=== PATIENT | male | born 1940 | race Caucasian/White ===

== ENCOUNTER 2017-05-22 09:13 | Outpatient (CLI) | payer MEDICARE, BC ==
[2017-05-22 10:23] LABS: Anion Gap 10 mmol/L (10-20); BUN (Urea Nitrogen) 27 mg/dL (8.4-25.7); Calc. Creatinine Clearance 0 mL/min (70-130); Calcium 9.6 mg/dL (7.8-10.44); Carbon Dioxide 28 mmol/L (23-31); Chloride 100 mmol/L (98-107); Estimated GFR-MDRD 35
--- NOTE | 2017-05-22 12:03 | ULT ---
ULTRASOUND RENAL BILATERAL: History: Calcifications. Comparison: 05-23-15 FINDINGS: Right kidney measures 10.1 x 5.3 x 5 cm with an inferior pole calculus measuring approximately 4-5 m m. No hydronephrosis. Left kidney measures 9.9 x 5.1 x 5.8 cm without mass, hydronephrosis or abnormal calcifications. Uri nary bladder is unremarkable. IMPRESSION: 1. 4-5 mm calculus inferior pole right kidney. No evidence of obstructive uropathy. 2. Small likely cyst inferior pole right kidney measuring 1.4 x 1.6 cm. Follow up in 6 months recomm ended. POS: [facility]
--- NOTE | 2017-05-22 12:26 | RAD ---
ABDOMEN 1 VIEW: HISTORY: Calculus of kidney, urinary retention, frequent micturition. COMPARISON: Abdomen 1 view from 2015. FINDINGS: There is a calculus inferior pole right kidney measuring 4-5 mm. No abnormal calculus is seen proje cting over the left renal collecting system. There is a punctate calcification projecting over the left upper abdomen similar to the comparison e xamination. 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 IMPRESSION: 1. A 4-5 mm calculus inferior pole right kidney. 2. Punctate calculus projecting over the left renal shadow, similar to the comparison examination, may represent a calculus best seen on ultrasound. POS: [place]
[2017-05-22 13:03] LABS: Bilirubin Negative (Negative); Blood, Urine Trace (Negative); Glucose, Urine (Dipstick) 100 mg/dL (Negative); Ketone, Urine Negative (Negative); Nitrite Negative (Negative); Protein, Urine (Dipstick) Negative (Neg-Trace); Urobilinogen 0.2 mg/dL (0.2-1.0)
[2017-05-22 13:08] LABS: Bacteria/HPF None Seen HPF (None Seen); Hyaline Casts/LPF 0-3 HYALINE CAST LPF (0-3 Hyaline); RBC/HPF 0-3 HPF (0-3); Squamous Epithelial None Seen HPF (0-3); WBC/HPF None Seen HPF (0-3)
== END 2017-05-22 09:14 | disposition home or self-care (01) ==
LOC: ULT 09:13
PROVIDERS: ATTEND Urology
DX: N20.0 Calculus of kidney (principal); R33.9 Retention of urine, unspecified; R35.0 Frequency of micturition
CPT/HCPCS: 36415; 74000; 76770; 80048; 81001; 87086

== ENCOUNTER 2017-06-28 12:21 | Inpatient (IN) | payer MEDICARE, BC ==
[2017-06-28 13:01] LABS: PTT 27.2 SEC (22.9-36.1); Prothrombin Time 14.1 SEC (12.0-14.7)
[2017-06-28 13:12] LABS: #Eosinphils 0.4 thou/uL (0.0-0.7); #Lymphocytes 1.2 thou/uL (1.20-3.40); #Neutrophils 6.8 thou/uL (1.40-6.50); %Basophils 0.5 % (0.0-1.0); %Eosinophils 4.5 % (0.0-10.0); %Lymphocytes 12.5 % (21.0-51.0); %Monocytes 10.4 % (0.0-10.0); Mean Platelet Volume 8.9 fL (7.4-10.4); Red Blood Cell (RBC) Count 4.25 mill/uL (4.70-6.10); White Blood Cell (WBC) Count 9.5 thou/uL (4.8-10.8)
[2017-06-28 13:20] LABS: ALT (SGPT) 12 U/L (8-55); AST (SGOT) 24 U/L (5-34); Alkaline Phosphatase 63 U/L (40-150); Anion Gap 12 mmol/L (10-20); BUN (Urea Nitrogen) 30 mg/dL (8.4-25.7); Bilirubin, Total 0.6 mg/dL (0.2-1.2); CK (CPK) 269 U/L (30-200); Calc. Creatinine Clearance 0 mL/min (70-130); Calcium 9.3 mg/dL (7.8-10.44); Carbon Dioxide 26 mmol/L (23-31); Chloride 98 mmol/L (98-107); Estimated GFR-MDRD 35; Globulin 3.6 g/dL (2.4-3.5); Lipase 20 U/L (8-78); Protein, Total 7.5 g/dL (5.8-8.1)
[2017-06-28 13:24] LABS: Troponin I 0.016 ng/mL (< 0.028)
--- NOTE | 2017-06-28 15:22 | RAD ---
CHEST 1 VIEW: Date: 06/28/17 HISTORY: Syncope. COMPARISON: Chest 1 view from 2013. FINDINGS: There are chronic pleural and parenchymal changes of the left lung base which are [facility] No acute osseous abnormality. Cardiac silhouette and mediastinal contour similar. No focal air space consolidation or pneumothorax. IMPRESSION: No acute intrathoracic abnormality. POS: [facility]
--- NOTE | 2017-06-28 15:34 | CT ---
HEAD CT WITHOUT CONTRAST 06/28/17 COMPARISON: None. HISTORY: Syncope. TECHNIQUE: Serial axial CT imaging is obtained at 5 mm intervals from vertex through skull base without contrast . FINDINGS: The imaged paranasal sinuses/mastoid air cells are well aerated. There is atherosclerotic calcification of the distal vertebral arteries and the basilar artery. Parti ally imaged maxillary sinus mucosal thickening is noted. There is multifocal periventricular deep and subcortical white matter hypodensity suggesting small ve ssel disease. There is encephalomalacia within the superior posterior right parietal region suggestin g prior infarction. Areas of hypodensity within bilateral cerebellar hemispheres are noted, right gre ater than left, suggesting age indeterminate ischemia. No intracranial hemorrhage, midline shift or mass effect. IMPRESSION: Small vessel disease with evidence of age indeterminate bilateral cerebellar hemisphere infarctions a nd supratentorial infarctions. If there is clinical concern for acute infarction, followup brain MRI suggested. POS: [place]
[2017-06-28 16:10] LABS: Troponin I 0.012 ng/mL (< 0.028)
[2017-06-28] MEDS ORDERED: Ondansetron ODT 4 MG TAB SL PRN (18:10)
[2017-06-28] MEDS ORDERED: Ondansetron HCl/PF 4 MG/2 ML Vial IVP PRN (18:10)
[2017-06-28 18:11] VITALS: BMI 23.1
[2017-06-28] MEDS: Sodium Chloride 0.9% 1,000 ML IV SCH (18:59)
[2017-06-28 19:15] LABS: Troponin I 0.016 ng/mL (< 0.028)
[2017-06-28] MEDS ORDERED: hydrALAZINE 20 MG/ML VIAL SLOW IVP PRN (20:37)
--- NOTE | 2017-06-28 21:44 | HP ---
DATE OF ADMISSION: 06/28/2017 This is admission for observation to telemetry floor. CHIEF COMPLAINT: Syncopal episode. HISTORY OF PRESENT ILLNESS: The patient is a 77-year-old male who did some work in his gar den this morning and he came to the house because he felt a little bit dizzy. His vision was a littl e bit blurred, and he sat down and while sitting there his noticed that he did not respond to he r when he was sitting and he kind of slumped over and he was not able to communicate with her at all, which lasted according to her for a few minutes. The EMS was called and he was taken to the emergen cy room. According to his , the whole episode lasted approximately 10 minutes. He regained cons ciousness relatively quickly and he was evaluated in the emergency room. Decision was made about hos pitalization for observation. Interrogation of his pacer and monitoring his heart for the next 23-ho urs. PAST MEDICAL HISTORY: Positive for: 1. Diabetes mellitus type 2. 2. Pacemaker placement. 3. Benign prostatic hypertrophy. 4. Nephrolithiasis. 5. History of urinary tract infection. 6. Coronary artery disease. 7. History of myocardial infarction and two stent placement. 8. Hypertension. PAST SURGICAL HISTORY: CABG. MEDICATIONS: Finasteride 5 mg once a day, metoprolol 50 mg 2 a day, tamsulosin 0.4 mg unknown freque ncy, atorvastatin 10 mg unknown frequency, Lasix 40 mg unknown frequency, Januvia 100 mg unknown freq uency, aspirin 325 mg daily, vitamin D 1000 units daily, hydralazine 50 mg twice a day, latanoprost 0 .005% ophthalmic solution 2.5 mL unknown frequency and MiraLax p.r.n. for constipation. ALLERGIES: PENICILLIN. FAMILY HISTORY: Father was 93 when he passed of natural causes. Mother was 73 and she had cancer, u nknown origin. SOCIAL HISTORY: He denies any cigarette smoking, alcohol intake or use any illicit drugs. He lives with his . REVIEW OF SYSTEMS: Constitutional: Negative for fever and chills. Eyes: Negative for eye pain and eye discharge. Positive for some blurred vision during this episode. Cardiovascular: Negative for chest pain and palpitations. Respiratory: Negative for shortness of breath and cough. ENT: Negat michelle for epistaxis and nasal congestion. Gastrointestinal: Negative for nausea. Positive for consti pation. Genitourinary: Negative for hematuria and dysuria. Positive for slow stream of the urine w hile urinating. Neurologic: Positive for loss of consciousness. Negative for any focal deficits. Skin: Negative for rashes or erythema. Psychiatric: Negative for suicidal or homicidal ideations. PHYSICAL EXAMINATION: VITAL SIGNS: Blood pressure is 146/72, pulse is 76. He is afebrile, respiratory rate is 16. HEENT: Atraumatic, normocephalic. Eyes: PERRLA. Conjunctivae pinkish. Oral mucosa is somewhat dr y. NECK: Supple, no lymphadenopathy. Thyroid is not palpable. No JVD. LUNGS: Clear. HEART: S1, S2 normal. No S3, no S4, no murmur. ABDOMEN: Soft, nontender, bowel sounds are present, no organomegaly. EXTREMITIES: No clubbing, cyanosis, or edema. He has a pretty good pulses on both tibialis posterio r and dorsalis pedis arteries, similar bilaterally. NEUROLOGIC: He is alert and oriented x4. There is no any sensorimotor deficits are present. Crania l nerves are intact. LABORATORY AND X-RAY FINDINGS: Showed a white count of 9.5, hemoglobin 13.4, hematocrit 41.0, platel et count is 114. PT 14.1, INR 1.1, PTT 27.2. Sodium of 132, BUN 30, creatinine 1.85, estimated GFR 35, glucose 137, creatinine kinase 269, total globulin 3.8. Lipase 20 and the rest of chemistry with in normal limits. Chest x-ray was done and was personally reviewed by me. There are no any acute ab normalities. No infiltrates. Brain CT was done and it did not show any acute abnormalities. IMPRESSION: 1. Syncope, most likely related to volume depletion. The patient is on Lasix and beta blockers and he noticed that each time he gets up, he has to take time and be careful because he feels unsteady an d kind of dizzy. 2. Diabetes mellitus type 2. 3. History of coronary artery disease. 4. Pacemaker. 5. History of nephrolithiasis. 6. Hypertension. 7. History of urinary tract infection. PLAN: Admission for observation. Condition is fair. Activity is bathroom privileges. IV normal sa line at 75 mL per hour. He received almost full liter of fluids in the emergency room, we will inter rogate his pacer. We will have additional 2 sets of cardiac enzymes to be checked. We will his hold home medications except for Lasix and we will do echocardiogram and he is not going to have Lovenox since he has some thrombocytopenia, which is mild, but will have him on sequential compression device s for deep venous thrombosis prophylaxis.
[2017-06-29 05:57] LABS: #Eosinphils 0.3 thou/uL (0.0-0.7); #Lymphocytes 1.4 thou/uL (1.20-3.40); #Neutrophils 5.9 thou/uL (1.40-6.50); %Basophils 0.4 % (0.0-1.0); %Eosinophils 3.7 % (0.0-10.0); %Lymphocytes 16.3 % (21.0-51.0); Hematocrit 39.9 % (42.0-52.0); Mean Platelet Volume 9.5 fL (7.4-10.4); Red Blood Cell (RBC) Count 4.15 mill/uL (4.70-6.10); White Blood Cell (WBC) Count 8.7 thou/uL (4.8-10.8)
[2017-06-29 06:23] LABS: Anion Gap 9 mmol/L (10-20); BUN (Urea Nitrogen) 22 mg/dL (8.4-25.7); Calc. Creatinine Clearance 45 mL/min (70-130); Calcium 8.9 mg/dL (7.8-10.44); Carbon Dioxide 24 mmol/L (23-31); Chloride 110 mmol/L (98-107); Estimated GFR-MDRD 45
[2017-06-29] MEDS: Sodium Chloride 0.9% 1,000 ML IV SCH (06:24)
[2017-06-29] MEDS ORDERED: Polyethylene Glycol 3350 17 GM Packet PO PRN (07:23)
[2017-06-29] MEDS ORDERED: hydrALAZINE 25 MG TAB PO SCH (09:00)
[2017-06-29] MEDS ORDERED: Dutasteride 0.5 MG CAP PO SCH (09:00)
[2017-06-29] MEDS ORDERED: Alogliptin Benzoate 25 MG TABLET PO SCH (09:00)
[2017-06-29] MEDS ORDERED: Tamsulosin HCl 0.4 MG CAP PO SCH (09:00)
[2017-06-29 11:30] VITALS: TEMP 98.1
[2017-06-29] MEDS ORDERED: Amlodipine 5 MG TAB PO SCH ×2 (12:45)
[2017-06-29 14:03] VITALS: BP 123/62
[2017-06-29] MEDS ORDERED: Aspirin 325 MG TAB PO SCH (21:00)
[2017-06-29] MEDS ORDERED: Atorvastatin Calcium 10 MG TAB PO SCH (21:00)
[2017-06-29] MEDS ORDERED: Latanoprost 0.005% Ophth Soln 2.5 ml Bottle EA EYE SCH (21:00)
--- NOTE | 2017-06-29 22:35 | DIS ---
DATE OF ADMISSION: 06/28/2017 DATE OF DISCHARGE: 06/29/2017 DIAGNOSES AT THE TIME OF DISCHARGE: 1. Syncope. 2. Diabetes mellitus type 2. 3. Uncontrolled hypertension. 4. History of coronary artery disease. 5. Pacemaker. 6. History of nephrolithiasis. 7. Hypertension. 8. History of urinary tract infection. 9. Benign prostatic hypertrophy. HOSPITAL COURSE: The patient is a 77-year-old male who was admitted to the hospital [facility] of syncopal episode. Apparently, he did some work in his garden in the morning and came home [facility] he felt a little bit dizzy and has some blurred vision. He sat down and while he was sitting, his noticed that he was not responsive to her like he normally is. He is kind of slumped over and he was not able to communicate with her. EMS was called and the patient was taken to the emergency r oom. According to his , this responsiveness lasted approximately 10 minutes. After he was evalu ated in the emergency room, the decision was made about hospitalization for observation. At the time of the ER visit, his white count was 9.5, hemoglobin 13.4, hematocrit 41.0, platelet count was 114. INR was 1.1. Sodium of 132, BUN 30, creatinine 1.85, glucose was 137, creatinine kinase 269, total globulin 3.8 and lipase was 20. The rest of chemistry was within normal limits. Chest x-ray was don e and did not show any acute abnormalities. The brain CT was done and it did not show any acute abno rmalities either. EKG showed a paced rhythm 61 beats per minute with no ectopics. There was complet e right bundle branch block. [place] was normal. The patient had orthostatic done and they were negati ve. He received IV fluids in the emergency room and after he was admitted to the hospital, he was ob served on telemetry floor. There were not any additional acute syncopal episodes. Echocardiogram wa s done and showed 45%-50% ejection fraction of the left ventricle, grade 1 diastolic dysfunction, inf erolateral septal hypokinesia, and mitral annular calcification was present. The patient also had an additional set of cardiac enzymes and troponin came back at 0.016. With IV fluids, his creatinine w ent down to 1.49 and his glycemia was in the range of 125-169. Because of his mild microcytic anemia , vitamin B12 was checked along with folic acid levels and vitamin B12 was 329 and folate was 10.90. The patient was advised to get a bottle of multivitamin with vitamin B12 and folic acid and take on a daily basis. He is doing well. He is able to get up and walk in the hallway without any dizziness . PHYSICAL EXAMINATION: VITAL SIGNS: Blood pressure was 185/85 around 11:00 today and he was given 5 mg of amlodipine and no w is down to 123/62. The patient is seen and examined before his discharge. LUNGS: Clear. HEART: S1, S2 normal. No S3, no S4. ABDOMEN: Soft, nontender, bowel sounds are present, no organomegaly. EXTREMITIES: No clubbing, cyanosis, or edema. The patient is discharged home with a recommendation to stay on low-salt, heart-healthy diet. ACTIVITIES: As tolerated. MEDICATIONS AT THE TIME OF DISCHARGE: He has got a prescription for amlodipine 5 mg tablets, he will take half a tablet which is 2.5 mg daily. Also, he will continue his other home medications which a re aspirin 325 mg once a day, atorvastatin 10 mg at bedtime, vitamin D3 1000 units every other day, A vodart 0.5 mg tablets once a day, hydralazine 50 mg tablets twice a day, latanoprost ophthalmic solut ion 1 drop to each eye at bedtime, metoprolol succinate 50 mg twice a day, polyethylene glycol 17 gra ms once a day, sitagliptin phosphate which is Januvia 100 mg daily, alogliptin 25 mg daily, Flomax 0. 4 mg once a day, and furosemide 20 mg daily. DISPOSITION: Home. He will follow up with his primary care physician in one week and he will keep h is appointment with Dr. Costa, which is coming up soon. This patient was seen and examined before he was discharged and the discharge time is less than 30 minutes.
[2017-06-30] MEDS ORDERED: Amlodipine 5 MG TAB PO SCH (09:00)
== END 2017-06-29 14:54 | disposition home or self-care (01) | DRG 312 ==
LOC: ERS 12:21 → 2NO 17:22
PROVIDERS: ADMIT Internal Medicine; ATTEND Internal Medicine
DX: R55 Syncope and collapse (principal); D69.6 Thrombocytopenia, unspecified; E11.9 Type 2 diabetes mellitus without complications; I10 Essential (primary) hypertension; I25.2 Old myocardial infarction; D50.9 Iron deficiency anemia, unspecified; I45.10 Unspecified right bundle-branch block; Z95.0 Presence of cardiac pacemaker; Z95.1 Presence of aortocoronary bypass graft; Z88.0 Allergy status to penicillin; N40.0 Benign prostatic hyperplasia without lower urinary tract symptoms; Z87.891 Personal history of nicotine dependence
CPT/HCPCS: 36415; 36416; 70450; 71010; 80048; 80053; 82550; 82553; 82607; 82746; 83690; 84484; 85025; 85610; 85730; 93005; 93306; 96360; J0360

== ENCOUNTER 2018-01-20 11:45 | Observation (INO) | payer MEDICARE, BC ==
[2018-01-20 12:17] LABS: #Basophils 0.1 thou/uL (0.0-0.2); #Eosinphils 0.4 thou/uL (0.0-0.7); #Lymphocytes 1.4 thou/uL (1.20-3.40); #Neutrophils 6.5 thou/uL (1.40-6.50); %Basophils 0.6 % (0.0-1.0); %Eosinophils 3.9 % (0.0-10.0); %Lymphocytes 15.4 % (21.0-51.0); %Monocytes 10.6 % (0.0-10.0); %Neutrophils 69.5 % (42.0-75.0); Hemoglobin 14.2 g/dL (14.0-18.0); Mean Corpuscular HGB CONC 33.4 g/dL (32.0-36.0); Mean Corpuscular Hemoglobin 31.7 pg (27.0-31.0); Mean Corpuscular Volume 94.8 fl (80.0-94.0); Mean Platelet Volume 9.4 fL (7.4-10.4); Platelet Count 108 thou/uL (130-400); RBC Distribution Width 12.3 % (11.5-14.5); Red Blood Cell (RBC) Count 4.47 mill/uL (4.70-6.10); White Blood Cell (WBC) Count 9.3 thou/uL (4.8-10.8)
[2018-01-20 12:28] LABS: ALT (SGPT) 12 U/L (8-55); AST (SGOT) 21 U/L (5-34); Albumin 4.2 g/dL (3.4-4.8); Alkaline Phosphatase 59 U/L (40-150); Anion Gap 14 mmol/L (10-20); BUN (Urea Nitrogen) 35 mg/dL (8.4-25.7); Bilirubin, Total 0.6 mg/dL (0.2-1.2); CK (CPK) 155 U/L (30-200); Calc. Creatinine Clearance 0 mL/min (70-130); Calcium 9.5 mg/dL (7.8-10.44); Carbon Dioxide 22 mmol/L (23-31); Chloride 102 mmol/L (98-107); Estimated GFR-MDRD 38; Globulin 3.7 g/dL (2.4-3.5); Glucose 160 mg/dL (83-110); Potassium 4.2 mmol/L (3.5-5.1); Protein, Total 7.9 g/dL (5.8-8.1); Sodium 134 mmol/L (136-145)
[2018-01-20 13:13] LABS: Bilirubin Negative (Negative); Blood, Urine Negative (Negative); Clarity CLEAR (Clear); Glucose, Urine (Dipstick) 100 mg/dL (Negative); Leukocyte Negative (Negative); Nitrite Negative (Negative); Protein, Urine (Dipstick) Negative (Neg-Trace); Urobilinogen 0.2 mg/dL (0.2-1.0); pH, Urine 7.5 (5.0-9.0)
--- NOTE | 2018-01-20 13:19 | CT ---
CT OF THE BRAIN WITHOUT CONTRAST: HISTORY: Syncope. COMPARISON: Prior exam dated 06/28/17. FINDINGS: There is stable severe chronic small-vessel white matter ischemic change. There are stable chronic-a ppearing bilateral cerebellar hemisphere infarctions and right parietal lobe infarction. There are s mall lacunar infarctions involving the basal ganglia bilaterally. The septum pellucidum and third ve ntricle are midline. No definite acute infarct, hemorrhage, or hydrocephalus is present. The skull and extracranial soft tissues appear within normal limits. There is complete opacification of the ma xillary sinuses which is stable. IMPRESSION: 1. Stable severe chronic small-vessel white matter ischemic change. No acute intracranial abnormali ty demonstrated. 2. Stable changes or chronic maxillary sinusitis. POS: [facility]
[2018-01-20 13:42] LABS: CKMB 3.9 ng/mL (0-6.6); Troponin I 0.012 ng/mL (< 0.028)
[2018-01-20 15:20] VITALS: BMI 24.1
[2018-01-20] MEDS ORDERED: Bisacodyl 5 MG TAB PO PRN (15:21)
[2018-01-20] MEDS ORDERED: Dextrose 50% Abboject 50 ML SYRINGE SLOW IVP PRN (15:21)
[2018-01-20] MEDS ORDERED: Acetaminophen 325 MG TAB PO PRN (15:21)
[2018-01-20] MEDS ORDERED: Dextrose 5% in Water 1,000 ML IV PRN (15:21)
--- NOTE | 2018-01-20 15:52 | HP ---
PRIMARY CARE PROVIDER: Chitra Mancia MD CHIEF COMPLAINT: Syncope. HISTORY OF PRESENT ILLNESS: Mr. Mccormack is a pleasant 77-year-old gentleman, who was seen at [facility] on 01/20/2018. He was hospitalized at this facility in 06/2017 for syncop e. His blood pressure medications were adjusted at the time of discharge. He reports that he was doing well. He came to [place] today because he had an appointment with his eye doctor. He was at lunch with his while eating at the [employer], he just started slumping for gomez. He was unresponsive to his . The patient reports that he did not pass out, but he was jasbir re of what was happening around him, but he felt too weak to respond. He denies any dizziness. He d enies any chest pain or shortness of breath while on the time of this episode. He denies any nausea or vomiting. His estimates that the entire episode lasted about 20 minutes. EMS was called. T he patient was brought to the emergency room and he reports that he is feeling better now. REVIEW OF SYSTEM: All other systems reviewed and found to be negative. PAST MEDICAL HISTORY: Diabetes mellitus type 2, pacemaker placement, benign prostate hypertrophy, ne phrolithiasis, urinary tract infection, coronary artery disease, myocardial infarction status post PC I with 2 stents, and hypertension. PAST SURGICAL HISTORY: Coronary artery bypass graft. ALLERGIES: PENICILLIN. CURRENT MEDICATIONS: Furosemide 20 mg daily, hydralazine 50 mg 2 times a day, finasteride 5 mg daily , metoprolol 50 mg 2 times a day, amlodipine 5 mg daily, Januvia 100 mg daily, atorvastatin 10 mg yudi ly, aspirin 325 mg daily, latanoprost eye drops 1 drop to each eye daily, multivitamins 1 tablet amy y, and MiraLax as needed. SOCIAL HISTORY: The patient denies tobacco use, alcohol use or recreational drug use. FAMILY HISTORY: Significant for "enlarged heart" in his mother. PHYSICAL EXAMINATION: GENERAL: Mr. Mccormack is awake and alert, not in acute distress. VITAL SIGNS: Blood pressure is 143/70, pulse is 60, he is breathing at rate of 19, and saturating 96 % on room air. He is afebrile. There is no orthostatic hypotension. EYES: No scleral icterus. No conjunctival pallor. ENT: Moist mucosal membranes, no oropharyngeal erythema or exudates. NECK: Supple, nontender, normal range of movement. Trachea is midline. RESPIRATORY: Accessory muscles of breathing are not active. Chest wall movements are symmetric bila terally. LUNGS: Clear to auscultation, without wheeze, rhonchi, or crepitations. CARDIOVASCULAR: S1 and S2 are heard, regular. Peripheral pulses palpable. No carotid bruit and no pericardial rub. ABDOMEN: Soft, nontender, bowel sounds are heard, no hepatomegaly, no splenomegaly. NEUROLOGIC: Cranial nerves II-XII intact. Deep tendon reflexes are 2+. MUSCULOSKELETAL: Power is 5/5 in all 4 extremities. SKIN: No rashes or subcutaneous nodules. LYMPHATIC: No cervical lymphadenopathy. PSYCHIATRIC: Normal mood, normal affect, patient is oriented to person and place, not to time. LABORATORY DATA: Mr. Mccormack labs and investigations were reviewed. I reviewed his electrocardiogra m, which shows AV electronic paced rhythm, no ST changes to suggest an acute coronary syndrome. I al so reviewed his noncontrast CT scan of brain, which does not show any acute stroke or bleed. He has normal white count, normal hemoglobin, decreased platelet count of 108,000, last known platelet count 125,000 on 12/03/2017, decreased sodium of 134, normal potassium, elevated blood urea nitrogen of 35 , last known blood urea nitrogen 25 on 12/03/2017, elevated creatinine 1.75, last known creatinine 1. 71 on 12/03/2017, normal liver function tests and urinalysis that is only positive for glucose. ASSESSMENT AND PLAN: Mr. Mccormack is a pleasant 77-year-old gentleman, who was seen at [facility] on 01/20/2018. His problem list includes: 1. Syncope: Etiology unclear, most likely related to dehydration. Patient will be admitted to the hospital and provided gentle hydration. His pacemaker has been interrogated in the Emergency Room [place] part[place] and the emergency room physician reports that it was normal. We will also request Cardiolog y Service input for opinion and help with further management. His primary fiberglass tube molder is Dr. Alanis de luna. 2. Thrombocytopenia: Chronic, we will follow counts. 3. Chronic kidney disease stage 3, stable, the patient appears to have superimposed dehydration at t his time. 4. Coronary artery disease: Appears to be stable. First troponin I is negative. We will recheck h is troponin level. 5. Diabetes mellitus type 2: Start Accu-Cheks, insulin sliding scale. 6. Hypertension: Continue to check orthostatic vitals, in case the patient has orthostatic hypotens ion. Patient reportedly had a systolic blood pressure in the 90s when he was seen by EMS personnel. If he develops hypotension, his blood pressure medication doses may need to be decreased. Many thanks for allowing me to participate in your patient's care. Please feel free to contact me wi th any questions or concerns. CODE STATUS: His code status was discussed. He is FULL CODE. His is the surrogate decision marina ibanez. LEVEL OF RISK: High. LEVEL OF COMPLEXITY: High.
[2018-01-20] MEDS: Sodium Chloride 0.9% 1,000 ML IV SCH (16:14)
[2018-01-20 16:41] LABS: CKMB 4.1 ng/mL (0-6.6); Troponin I Less than 0.010 ng/mL (< 0.028)
[2018-01-20] MEDS: HumaLOG 300 UNITS/3 ML VIAL SC PRN (17:04)
[2018-01-21 05:04] LABS: ALT (SGPT) 9 U/L (8-55); AST (SGOT) 19 U/L (5-34); Albumin 3.7 g/dL (3.4-4.8); Alkaline Phosphatase 52 U/L (40-150); Anion Gap 11 mmol/L (10-20); BUN (Urea Nitrogen) 26 mg/dL (8.4-25.7); Bilirubin, Total 0.6 mg/dL (0.2-1.2); Calc. Creatinine Clearance 46 mL/min (70-130); Calcium 8.9 mg/dL (7.8-10.44); Carbon Dioxide 25 mmol/L (23-31); Chloride 107 mmol/L (98-107); Estimated GFR-MDRD 47; Globulin 3.2 g/dL (2.4-3.5); Glucose 116 mg/dL (83-110); Potassium 3.7 mmol/L (3.5-5.1); Protein, Total 6.9 g/dL (5.8-8.1); Sodium 139 mmol/L (136-145)
[2018-01-21 05:13] LABS: #Basophils 0.1 thou/uL (0.0-0.2); #Eosinphils 0.3 thou/uL (0.0-0.7); #Lymphocytes 1.4 thou/uL (1.20-3.40); #Monocytes 1.1 thou/uL (0.11-0.59); #Neutrophils 7.1 thou/uL (1.40-6.50); %Basophils 0.5 % (0.0-1.0); %Eosinophils 3.5 % (0.0-10.0); %Lymphocytes 13.9 % (21.0-51.0); %Neutrophils 71.1 % (42.0-75.0); Hemoglobin 13.2 g/dL (14.0-18.0); Mean Corpuscular HGB CONC 33.2 g/dL (32.0-36.0); Mean Corpuscular Hemoglobin 31.1 pg (27.0-31.0); Mean Corpuscular Volume 93.8 fl (80.0-94.0); Mean Platelet Volume 9.3 fL (7.4-10.4); Platelet Count 113 thou/uL (130-400); RBC Distribution Width 12.2 % (11.5-14.5); Red Blood Cell (RBC) Count 4.24 mill/uL (4.70-6.10)
[2018-01-21] MEDS: Sodium Chloride 0.9% 1,000 ML IV SCH (05:55)
[2018-01-21] MEDS ORDERED: Enoxaparin Sodium 40 MG/0.4 ML SYRINGE SC SCH (09:00)
[2018-01-21] MEDS ORDERED: ADENOSINE 60 MG/20 ML VIAL ONE (12:09)
--- NOTE | 2018-01-21 14:05 | NM ---
MYOCARDIAL PERFUSION STUDY: DATE: 01/21/18. HISTORY: Syncope. History of myocardial infarction, coronary artery disease, history of CABG and stent placem ent. RADIOPHARMACEUTICALS: 30 mCi Technetium 99m sestamibi, IV at stress, and 9 mCi Technetium 99m sestamibi, IV at rest. MEDICATIONS: 14.7 mL (44 mg) adenosine, IV. FINDINGS: There is no reversible defect seen between the resting and stress acquisitions. No fixed defect is s een. Gated images show hypokinesis involving the septal wall and to a lesser extent inferior left ve ntricular wall. Normal wall thickening is present. The calculated left ventricular ejection fractio n is 65%. IMPRESSION: 1. Normal myocardial perfusion study without evidence of a reversible defect seen to suggest ischemi a. 2. Hypokinesis involving the septum and inferior left ventricular wall. 3. Normal left ventricular ejection fraction of 65%. POS: [place]
--- NOTE | 2018-01-21 15:38 | PDOC.PN ---
- Subjective Encounter Start Date: 01/21/18 Encounter Start Time: 08:40 Pt seen for followup re: syncope. Denies chest pain, shortness of breath, fevers or chills. No nausea or vomiting. - Objective Resuscitation Status: Resuscitation Status FULL:Full Resuscitation MAR Reviewed: Yes Vital Signs & Weight: Vital Signs (12 hours) Temp Pulse Resp BP Pulse Ox 01/21/18 12:25 97.9 F 69 12 173/81 H 97 01/21/18 07:55 98.9 F 60 12 01/21/18 07:32 98.9 F 60 12 134/66 97 01/21/18 04:24 98.6 F 61 18 145/72 H 97 Weight Weight 173 lb 4.8 oz I&O: 01/20/18 01/21/18 01/22/18 06:59 06:59 06:59 Intake Total 1848 Output Total 2075 Balance -227 Result Diagrams: 01/21/18 04:22 01/21/18 04:22 Additional Labs: Accuchecks 01/21/18 01/21/18 01/20/18 12:31 04:24 20:37 POC Glucose 137 H 113 H 164 H 01/20/18 16:57 POC Glucose 200 H EKG Reviewed by me: Yes (Tele: A-paced V-sensed rhythm) Phys Exam - Physical Examination Constitutional: NAD HEENT: moist MMs, sclera anicteric, oral pharynx no lesions, 2+ tonsils Neck: no nodes, no JVD, supple, full ROM Respiratory: no wheezing, no rales, no rhonchi, clear to auscultation bilateral Cardiovascular: RRR, no rub S1, s2 Gastrointestinal: soft, non-tender, no distention, positive bowel sounds Musculoskeletal: edema present Neurological: moves all 4 limbs Psychiatric: normal affect Deviation from normal: Oriented to person and place, not to time Dx/Plan (1) Syncope Code(s): R55 - SYNCOPE AND COLLAPSE Status: Acute Comment: No recurrence, monitor on tele (2) Dehydration Code(s): E86.0 - DEHYDRATION Status: Acute Comment: Improved with IV fluids (3) Thrombocytopenia Code(s): D69.6 - THROMBOCYTOPENIA, UNSPECIFIED Status: Chronic Comment: stable (4) CKD stage 3 due to type 2 diabetes mellitus Code(s): E11.22 - TYPE 2 DIABETES MELLITUS W DIABETIC CHRONIC KIDNEY DISEASE; N18.3 - CHRONIC KIDNEY DISEASE, STAGE 3 (MODERATE) Status: Chronic Comment: creatinine improved with IV fluids (5) DM2 (diabetes mellitus, type 2) Status: Chronic Comment: continue accuchecks, insulin sliding scale (6) HTN (hypertension) Code(s): I10 - ESSENTIAL (PRIMARY) HYPERTENSION Status: Chronic Comment: Monitor vital signs, titrate antihypertensives as needed - Plan * . Review of Systems - Review of Systems Constitutional: negative: fever, chills, sweats, weakness, malaise Respiratory: negative: Cough, Shortness of Breath, SOB with Excertion, Pleuritic Pain, Wheezing Cardiovascular: negative: chest pain, palpitations, orthopnea, paroxysmal nocturnal dyspnea, edema, light headedness Gastrointestinal: negative: Nausea, Vomiting, Abdominal Pain, Diarrhea, Constipation, Melena, Hematochezia Genitourinary: negative: Dysuria, Frequency, Incontinence, Hematuria, Retention Neurological: negative: Weakness, Numbness, Incoordination, Change in Speech, Confusion, Seizures - Medications/Allergies Allergies/Adverse Reactions: Allergies Allergy/AdvReac Type Severity Reaction Status Date / Time Penicillins Allergy Rash Verified 06/28/17 20:58 Medications: Current Medications Acetaminophen (Tylenol) 650 mg PO Q4H PRN PRN Reason: Headache/Fever or Pain Bisacodyl (Dulcolax) 10 mg PO DAILYPRN PRN PRN Reason: Constipation Dextrose/Water (Dextrose 50%) 25 gm SLOW IVP PRN PRN PRN Reason: Hypoglycemia Enoxaparin Sodium (Lovenox) 40 mg SC 0900 [facility] Last Admin: 01/21/18 09:04 Dose: 40 mg Glucagon (Glucagon) 1 mg IM PRN PRN PRN Reason: Hypoglycemia Dextrose/Water (D5w) 1,000 mls @ 0 mls/hr IV .Q0M PRN; As Directed PRN Reason: Hypoglycemia Sodium Chloride (Normal Saline 0.9%) 1,000 mls @ 70 mls/hr IV .[id number] [facility] Last Admin: 01/21/18 05:55 Dose: 1,000 mls Insulin Human Lispro (Humalog) 0 units SC .MILD SLIDING SCALE PRN PRN Reason: Mild Correctional Scale Last Admin: 01/20/18 17:04 Dose: 2 units
[2018-01-21] MEDS ORDERED: Polyethylene Glycol 3350 17 GM Packet PO PRN (15:42)
[2018-01-21] MEDS: HumaLOG 300 UNITS/3 ML VIAL SC PRN (18:28)
[2018-01-21 19:55] VITALS: BP 131/68; TEMP 98.4
[2018-01-21] MEDS ORDERED: Aspirin 325 MG TAB PO SCH (21:00)
[2018-01-21] MEDS ORDERED: hydrALAZINE 25 MG TAB PO SCH (21:00)
[2018-01-21] MEDS ORDERED: Latanoprost 0.005% Ophth Soln 2.5 ml Bottle EA EYE SCH (21:00)
[2018-01-21] MEDS ORDERED: Atorvastatin Calcium 10 MG TAB PO SCH (21:00)
[2018-01-22] MEDS ORDERED: Furosemide 20 MG TAB PO SCH (09:00)
[2018-01-22] MEDS ORDERED: Amlodipine 5 MG TAB PO SCH (09:00)
[2018-01-22] MEDS ORDERED: Alogliptin 6.25 MG TAB PO SCH (09:00)
--- NOTE | 2018-01-22 12:06 | DIS ---
PRIMARY CARE PROVIDER: Chitra Mancia MD DATE OF ADMISSION: 01/20/2018 DATE OF DISCHARGE: 01/21/2018 DISCHARGE DIAGNOSES: 1. Syncope. 2. Dehydration. CONSULTATIONS DURING THIS HOSPITALIZATION: Cardiology, Dr. Blake. DISCHARGE MEDICATIONS: No change was made to his preadmission home medications as dictated on my his tory and physical note on 01/20/2018. HOSPITAL COURSE: Mr. Mccormack is a pleasant 77-year-old gentleman, who was admitted to [facility] for a syncopal episode on 01/20/2018. The syncopal episode was not classical syn cope, because patient reported that he could follow what was going on around him, but he could not re spond because he felt too weak. He was seen by Cardiology Service. He had nuclear stress test, which was normal. Left ventricular e jection fraction was 65%. He had hypokinesis involving the septum and inferior left ventricular wall . On 01/21/2018, I assessed Mr. Mccormack. Please refer to my hospitalist progress note for further info rmation regarding this [id number] encounter. He was seen by his terrazzo worker helper later in the day on 01/21/2018 and was cleared for discharge. Mr. Mccormack did not have any evidence of orthostasis during this hospitalization. On the day of discharge, he had white count of 10,000, hemoglobin 13.2, platelet count 113,000. Norm al electrolytes, blood urea nitrogen elevated at 26 and creatinine elevated at 1.44, down from 1.75 a t the time of admission. Many thanks for allowing me to participate in your patient's care. Please feel free to contact me wi th any questions or concerns. DISCHARGE DESTINATION: Home.
== END 2018-01-21 20:21 | disposition home or self-care (01) ==
LOC: ERS 11:45 → 2SW 15:15
PROVIDERS: ADMIT Internal Medicine; ATTEND Internal Medicine
DX: R55 Syncope and collapse (principal); E86.0 Dehydration; D69.6 Thrombocytopenia, unspecified; E11.22 Type 2 diabetes mellitus with diabetic chronic kidney disease; I12.9 Hypertensive chronic kidney disease with stage 1 through stage 4 chronic kidney disease, or unspecified chronic kidney disease; N18.3 Chronic kidney disease, stage 3 (moderate); I25.10 Atherosclerotic heart disease of native coronary artery without angina pectoris; N39.0 Urinary tract infection, site not specified; I25.2 Old myocardial infarction; Z95.1 Presence of aortocoronary bypass graft; Z88.0 Allergy status to penicillin; Z79.82 Long term (current) use of aspirin; Z79.899 Other long term (current) drug therapy
CPT/HCPCS: 70450; 78452; 80053 ×2; 81003; 82550; 82553 ×2; 82962 ×2; 83605; 84484 ×2; 85025 ×2; 93005; 93017; 94760; 96360; 96361 ×2; 96372; 99285; A9500; G0378; 36415; 36416; J0153; J1650

== ENCOUNTER 2018-05-26 11:57 | Outpatient (CLI) | payer MEDICARE, BC ==
--- NOTE | 2018-05-26 14:28 | ULT ---
RENAL SONOGRAM: History: Renal calculi. FINDINGS: Right kidney is 10.6 cm in length. No hydronephrosis. Left kidney is 10.5 cm. At the inferior pole, an echogenic focus with posterior shadowing has the ioana earance of a stone or cluster of stones. A small echogenicity at the lateral cortex of the left kidne y shows posterior shadowing and may represent a caliceal stone. No hydronephrosis. Urinary bladder is unremarkable. IMPRESSION: Nonobstructing left renal calculi. POS: [place]
--- NOTE | 2018-05-26 14:36 | RAD ---
KUB: INDICATION: History of renal stones. FINDINGS: A 4 mm nonobstructing calculus overlying the inferior pole of the right kidney is stable. A tiny 2 m m nonobstructive calculus overlying the mid to lower pole of the left kidney is stable. A prominent amount of retained stool within the colon. No suspicious calcifications are seen along the expected course of the renal collecting system. There is scattered degenerative and osteoarthritic change. IMPRESSION: Bilateral nephrolithiasis appears similar to a comparison dated 05/22/2017. POS: [place]
== END 2018-05-26 11:58 | disposition home or self-care (01) ==
LOC: BICULT 11:57
PROVIDERS: ATTEND Urology
DX: N20.0 Calculus of kidney (principal); N40.1 Benign prostatic hyperplasia with lower urinary tract symptoms; R35.0 Frequency of micturition
CPT/HCPCS: 36415; 74018; 76770; 80048; 81003; 81015; 87086

== ENCOUNTER 2019-06-09 09:14 | Outpatient (CLI) | payer MEDICARE, BC ==
--- NOTE | 2019-06-09 10:16 | ULT ---
US Renal Bilateral STANDARD HISTORY: Renal calculi COMPARISON: 05/26/2018 study FINDINGS: Real-time imaging of the right and left kidneys were performed. The kidneys are normal in s ize. The right kidney measures 11.2 the left kidney 10.7 cm in size. There are no signs of cyst, mass or obstruction. There are small echogenic foci of some of which show some faint shadowing in bot h the right and left kidneys which are suspicious for nonobstructing calculi. Bladder region appears unremarkable. IMPRESSION: Nonobstructing bilateral renal calculi.
--- NOTE | 2019-06-09 10:27 | RAD ---
XR Abdomen 1 View/KUB HISTORY: Renal calculi COMPARISON: 05/26/2018 exam. FINDINGS: The bowel gas pattern appears nonobstructed with a moderate amount of stool present. Bilate ral renal calculi are seen. This appears to be stable appearance as compared to the prior exam. IMPRESSION: Bilateral renal calculi.
== END 2019-06-09 09:15 | disposition home or self-care (01) ==
LOC: ULT 09:14
PROVIDERS: ATTEND Urology
DX: N20.0 Calculus of kidney (principal)
CPT/HCPCS: 36415; 74018; 76770; 80048; 81003; 81015; 87086

== ENCOUNTER 2020-08-07 19:39 | Inpatient (IN) | payer MEDICARE, BC ==
[2020-08-07] MEDS ORDERED: Ondansetron PF 4 MG/2 ML Vial ONE (19:52)
[2020-08-07] MEDS ORDERED: Pantoprazole 40 MG VIAL ONE (20:12)
[2020-08-07 20:25] LABS: #Lymphocytes 0.5 thou/uL (1.20-3.40); #Monocytes 0.9 thou/uL (0.11-0.59); #Neutrophils 16.6 thou/uL (1.40-6.50); %Eosinophils 0.2 % (0.0-10.0); %Monocytes 5.1 % (0.0-10.0); %Neutrophils 91.7 % (42.0-75.0); Hemoglobin 15.4 g/dL (14.0-18.0); Mean Corpuscular HGB CONC 32.3 g/dL (32.0-36.0); Mean Corpuscular Volume 95.9 fL (78.0-98.0); Mean Platelet Volume 9.9 fL (7.4-10.4); Platelet Count 98 thou/uL (130-400); RBC Distribution Width 12.2 % (11.5-14.5); Red Blood Cell (RBC) Count 4.96 mill/uL (4.70-6.10); White Blood Cell (WBC) Count 18.1 thou/uL (4.8-10.8)
[2020-08-07 20:30] LABS: PTT 25.8 sec (22.9-36.1); Prothrombin Time 13.6 sec (12.0-14.7)
--- NOTE | 2020-08-07 20:31 | RAD ---
EXAM: CHEST ONE VIEW HISTORY: Nausea and vomiting. Post fall. Weakness. Vomiting blood. COMPARISON: 06/28/2017 FINDINGS: Dual lead left subclavian cardiac pacemaking device remains in place. Postoperative changes related t o median sternotomy are again present. Cardiac silhouette and pulmonary vasculature are within normal limits. There are areas of increased density seen in the region of the lingula and at the left lung base which were also seen on the prior study and may represent areas of scarring; however, density in the region of the lingula is slightly more prominent than on the prior study in 2017 which could be related to interval worsening of area of scarring, but superimposed infiltrate is a possibility. The right lung is clear. Vascular calcifications are seen in the thoracic aorta appears. No other interval change. IMPRESSION: 1. Findings most likely related to areas of scarring at the left lung base and lingula. However ankle density in the region of the lingula is slightly more prominent which could be related to patient rotation on this examination and accentuation area of scarring. However, superimposed more acute pneu monitis is a possibility.
[2020-08-07 20:39] LABS: ALT (SGPT) 11 U/L (8-55); AST (SGOT) 19 U/L (5-34); Albumin 4.2 g/dL (3.4-4.8); Alkaline Phosphatase 80 U/L (40-110); Anion Gap 23 mmol/L (10-20); BUN (Urea Nitrogen) 27 mg/dL (8.4-25.7); Bilirubin, Total 0.6 mg/dL (0.2-1.2); Calc. Creatinine Clearance 0 mL/min (70-130); Calcium 8.8 mg/dL (7.8-10.44); Carbon Dioxide 18 mmol/L (23-31); Chloride 99 mmol/L (98-107); Globulin 3.6 g/dL (2.4-3.5); Glucose 310 mg/dL (83-110); Lipase 13 U/L (8-78); Potassium 3.8 mmol/L (3.5-5.1); Protein, Total 7.8 g/dL (5.8-8.1); Sodium 136 mmol/L (136-145)
--- NOTE | 2020-08-07 20:51 | RAD ---
Exam: XR Elbow Lt 4 View STANDARD HISTORY: Injury to left elbow after a fall. COMPARISON: None FINDINGS: Minimal degenerative changes are seen involving the left elbow. No fracture or dislocation is seen. T here is an enthesophyte at the olecranon process of the ulna. IMPRESSION: No acute osseous abnormality is identified.
[2020-08-07] MEDS ORDERED: Promethazine HCl 25 MG/ML VIAL ONE (22:10)
[2020-08-07] MEDS ORDERED: Ondansetron ODT 4 MG TAB PO PRN (23:37)
[2020-08-07] MEDS ORDERED: Ondansetron PF 4 MG/2 ML Vial IVP PRN (23:37)
--- NOTE | 2020-08-07 23:43 | PDOC.HHP ---
Hospitalist HPI - History of Present Illness Hematemesis History of Present Illness: This is a 80-year-old male patient with a history of CKD, hypertension, diabetes, hyperlipidemia, coronary artery disease this post CABG, status post pacemaker who presents with hematemesis of a days duration. Patient is a relatively poor historian his was at the bedside gave most of the history. He was in his usual state of health when the feeling nauseous today after a couple of vomiting episodes today vomiting up dark altered blood. This led him to divert to the ED for further evaluation. Patient this being the first time he has had hematemesis. He complains of associated epigastric pain however mild about 3-4 in intensity. He notes having constipation however had no diarrhea. He denies any dysuria frequency. As presentation his blood pressures 148/71, pulse 60, respiratory 15 and saturating 95% on room air. His labs showed leukocytosis of 18.1 however no bands. Creatinine was elevated at 1.48 which is around his baseline. Troponin was 0.017. He was started on Protonix, promethazine/ondansetron and received a liter of normal saline. Hospitalist team was consulted for admission Hospitalist ROS - Review of Systems Constitutional: denies: fever, chills, sweats, weakness Respiratory: denies: cough, shortness of breath, hemoptysis Cardiovascular: denies: chest pain, palpitations, orthopnea Gastrointestinal: reports: nausea, vomiting, abdominal pain, constipation. denies: diarrhea Genitourinary: denies: dysuria, frequency, incontinence, hematuria Neurological: denies: weakness, numbness, incoordination All other systems reviewed; all pertinent +/- noted in HPI/Subj - Medication Medications: Medications: Currently refer to ambulatory order list. Allergies: Penicillin Hospitalist History - Past Medical History Other Medical History: CKD, hypertension, diabetes, hyperlipidemia, coronary artery disease this post CABG, status post pacemaker - Past Surgical History Other Surgical History: CABG x3, pacemaker placement - Family History Family History: reports: no pertinent history - Social History Smoking Status: Former smoker Alcohol: reports: None Drugs: reports: none Living Situation: With Family - Exam General Appearance: awake alert General - other findings: No acute distress Eye: PERRL, anicteric sclera Neck: supple, symmetric, no JVD Heart: RRR, no murmur, no gallops, no rubs Respiratory: CTAB, no wheezes, no rales, no ronchi Gastrointestinal: soft, non-distended, normal bowel sounds, no palpable masses, tender to palpation (Mild epigastric) Extremities: no cyanosis, no clubbing, no edema Neurological: cranial nerve grossly intact, no focal deficits Musculoskeletal: normal tone, normal strength Psychiatric: normal affect, normal behavior, A&O x 3 Hospitalist Results - Labs Result Diagrams: 08/08/20 05:53 08/08/20 05:53 Lab results: WBC 18.1 thou/uL (4.8-10.8) H 08/07/20 20:10 Hgb 15.4 g/dL (14.0-18.0) 08/07/20 20:10 Hct 47.6 % (42.0-52.0) 08/07/20 20:10 MCV 95.9 fL (78.0-98.0) 08/07/20 20:10 Plt Count 98 thou/uL (130-400) L 08/07/20 20:10 Neutrophils % 91.7 % (42.0-75.0) H 08/07/20 20:10 Sodium 136 mmol/L (136-145) 08/07/20 20:10 Potassium 3.8 mmol/L (3.5-5.1) 08/07/20 20:10 Chloride 99 mmol/L (98-107) 08/07/20 20:10 Carbon Dioxide 18 mmol/L (23-31) L 08/07/20 20:10 BUN 27 mg/dL (8.4-25.7) H 08/07/20 20:10 Creatinine 1.48 mg/dL (0.7-1.3) H 08/07/20 20:10 Glucose 310 mg/dL (83-110) H 08/07/20 20:10 Calcium 8.8 mg/dL (7.8-10.44) 08/07/20 20:10 Total Bilirubin 0.6 mg/dL (0.2-1.2) 08/07/20 20:10 AST 19 U/L (5-34) 08/07/20 20:10 ALT 11 U/L (8-55) 08/07/20 20:10 Alkaline Phosphatase 80 U/L (40-110) 08/07/20 20:10 Troponin I 0.017 ng/mL (< 0.028) 08/07/20 20:10 Serum Total Protein 7.8 g/dL (5.8-8.1) 08/07/20 20:10 Albumin 4.2 g/dL (3.4-4.8) 08/07/20 20:10 Lipase 13 U/L (8-78) 08/07/20 20:10 Hospitalist H&P A/P - Plan Plan: This an 80-year-old male patient with a history of carotid artery disease status post CABG, hypertension who presents with nausea vomiting and hematemesis today. Upper GI bleed Unclear etiology possibly GERD/PUD Started on pantoprazolewe will continue Avoid NSAIDs Trend hemoglobin GI consult in a.m. CKD Avoid nephrotoxic agents. Leukocytosis Unclear etiologyWBC 18.1 Possibly reaction to GI bleed We will monitor CBC. Carotid artery disease status post CABG Continue home medications once verified. Hypertension resume home medications Constipation Resume home medications. DVT prophylaxisSCD CODE STATUSfull code
[2020-08-08 00:47] LABS: Hemoglobin 14.6 g/dL (14.0-18.0)
[2020-08-08 01:45] VITALS: BMI 28.5
[2020-08-08] MEDS: Sodium Chloride 0.9% 1,000 ML IV SCH ×2 (02:50→16:11)
[2020-08-08] MEDS ORDERED: Promethazine HCl 25 MG/ML VIAL IM PRN (05:11)
[2020-08-08] MEDS: HumaLOG 300 UNITS/3 ML VIAL SC PRN ×3 (05:28→16:11)
--- NOTE | 2020-08-08 06:10 | PDOC.FMACP ---
Advance Care Planning - Note Summary: Advanced Care Planning was discussed. The diagnosis, prognosis and goals of care were discussed. 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 He is full code
[2020-08-08 06:16] LABS: #Lymphocytes 0.7 thou/uL (1.20-3.40); #Monocytes 0.8 thou/uL (0.11-0.59); #Neutrophils 10.4 thou/uL (1.40-6.50); %Basophils 0.1 % (0.0-1.0); %Eosinophils 0.1 % (0.0-10.0); %Lymphocytes 5.7 % (21.0-51.0); %Monocytes 6.7 % (0.0-10.0); %Neutrophils 87.5 % (42.0-75.0); Hemoglobin 14.1 g/dL (14.0-18.0); Mean Corpuscular HGB CONC 31.7 g/dL (32.0-36.0); Mean Corpuscular Hemoglobin 30.1 pg (27.0-31.0); Mean Corpuscular Volume 94.9 fL (78.0-98.0); Mean Platelet Volume 10.3 fL (7.4-10.4); Platelet Count 100 thou/uL (130-400); RBC Distribution Width 12.3 % (11.5-14.5); Red Blood Cell (RBC) Count 4.68 mill/uL (4.70-6.10); White Blood Cell (WBC) Count 11.9 thou/uL (4.8-10.8)
[2020-08-08 06:32] LABS: Anion Gap 17 mmol/L (10-20); BUN (Urea Nitrogen) 23 mg/dL (8.4-25.7); Calc. Creatinine Clearance 58 mL/min (70-130); Calcium 8.4 mg/dL (7.8-10.44); Carbon Dioxide 19 mmol/L (23-31); Chloride 104 mmol/L (98-107); Glucose 260 mg/dL (83-110); Potassium 4.8 mmol/L (3.5-5.1); Sodium 135 mmol/L (136-145)
[2020-08-08 09:11] LABS: SARS-CoV-2 MS2 Positive; SARS-CoV-2 N Gene Negative; SARS-CoV-2 S Gene Negative; SARS-CoV-2 by NAA Not Detected (NotDetected); SARS-CoV-2 orf1ab Negative
--- NOTE | 2020-08-08 09:12 | PDOC.HOSPP ---
- Subjective Encounter Date: 08/08/20 Encounter Time: 11:00 Subjective: Patient without further nausea or vomiting. No abdominal pain. Dr. Ramirez has seen the patient and is planning on an EGD in the morning. Will switch to inpatient status. - Objective Vital Signs & Weight: Vital Signs (12 hours) Temp Pulse Resp BP Pulse Ox 08/08/20 08:06 98.8 F 74 14 148/75 H 99 08/08/20 05:14 98.8 F 72 18 172/79 H 99 08/08/20 01:00 98.4 F 77 18 162/71 H 100 Weight Weight 215 lb 13.321 oz I&O: 08/07/20 08/08/20 08/09/20 06:59 06:59 06:59 Output Total 300 Balance -300 Result Diagrams: 08/08/20 12:01 08/08/20 05:53 Additional Labs: Accuchecks 08/08/20 05:24 POC Glucose 237 H Hospitalist ROS - Review of Systems Constitutional: denies: fever, chills Respiratory: denies: cough, shortness of breath Cardiovascular: denies: chest pain, palpitations Gastrointestinal: denies: nausea, vomiting, abdominal pain, diarrhea, constipation, melena, hematochezia - Medication Medications: Active Medications Generic Name Dose Route Start Last Admin Trade Name Freq PRN Reason Stop Dose Admin Sodium Chloride 1,000 mls @ 70 mls/hr 08/08/20 02:15 08/08/20 02:50 Normal Saline 0.9% IV 1,000 mls .[id number] KIESHA Administration Insulin Human Lispro 0 units 08/08/20 05:15 08/08/20 05:28 Humalog 300 Units/3 Ml Vial SC 3 unit .MILD SLIDING SCALE PRN Administration MILD SLIDING SCALE Protocol Ondansetron HCl 4 mg 08/07/20 23:37 08/08/20 01:59 Ondansetron Pf 4 Mg/2 Ml Vial IVP 4 mg Q6H PRN Administration Nausea/Vomiting - Exam General Appearance: NAD, awake alert ENT: moist mucosa Heart: RRR, no murmur, no gallops, no rubs Respiratory: CTAB, no wheezes, no rales, no ronchi Gastrointestinal: soft, non-tender, non-distended, normal bowel sounds Extremities: no edema Psychiatric: normal affect, normal behavior, A&O x 3 Hosp A/P - Plan This an 80-year-old male patient with a history of carotid artery disease status post CABG, hypertension who presented with nausea, vomiting, and hematemesis the day of admission. Upper GI bleed Unclear etiology possibly GERD/PUD Started on pantoprazolewe will continue Avoid NSAIDs Hemoglobin stable, no evidence for significant persistent bleed. GI consulted, Case planning an EGD in the morning. CKD Avoid nephrotoxic agents. Stable. Leukocytosis Resolving, likely stress reaction. Carotid artery disease status post CABG Continue home medications once verified. Hold ASA for now. Hypertension resume home medications Constipation Resume home medications. DVT prophylaxisSCD CODE STATUSfull code
[2020-08-08 09:53] LABS: Hemoglobin 13.9 g/dL (14.0-18.0)
[2020-08-08] MEDS: Pantoprazole 40 MG VIAL IVP SCH ×2 (09:57→20:14)
--- NOTE | 2020-08-08 10:56 | CON ---
DATE OF CONSULTATION: 08/08/2020 REQUESTING PHYSICIAN: Dr. Barnett. REASON FOR CONSULTATION: Hematemesis. HISTORY OF PRESENT ILLNESS: Boy Mccormack is a very pleasant 80-year-old man who was admitted to the hospital last night with concern for acute hematemesis. He has a history of coronary artery disease with coronary artery bypass graft and pacemaker placement. He deals with some chronic constipation, which seems to be well controlled with MiraLAX p.r.n., and he also reports some chronic heartburn, for which he will take Tums from [id number]. It does not appear he is on any acid suppression. He takes aspirin 325 mg daily, but denies any NSAID use. Evidently last night, he started feeling dizzy and lightheaded and then had acute nausea with multiple episodes of vomiting. His reports that he had several episodes lasting several hours. The patient himself describes this as appearing like the food that he had had, mainly black-eyed peas. He denies any hematemesis. To the , it appeared more jet black and concerning for possible old blood. There was no red hematemesis. There was no melena or hematochezia with this, but the patient was feeling weaker and weaker and actually had a fall and this all prompted his presentation. Initial hemoglobin was actually 15.4 and it is down only to 14.1 today. He had a leukocytosis of 18.1 on admission, which is also down to 11.9 today. BUN is in the normal range at only 23. He has not had any further vomiting or hematemesis here. He received some Zofran early this morning. Currently, he is not having any abdominal pain or nausea and is feeling back to baseline. He has no known history of peptic ulcer disease or liver disease. REVIEW OF SYSTEMS: Full review of systems including constitutional, head, eyes, ears, nose, throat, GI, , cardiovascular, respiratory, musculoskeletal, neurologic systems is negative except as noted in the HPI. PAST MEDICAL HISTORY: Coronary artery disease status post CABG, pacemaker, hypertension, chronic kidney disease, chronic constipation. ALLERGIES: PENICILLIN. OUTPATIENT MEDICATIONS: 1. Januvia. 2. Hydralazine. 3. MiraLAX as needed. 4. Metoprolol. 5. Lasix. 6. Lipitor. 7. Aspirin 325 mg daily. 8. Norvasc. 9. Tums p.r.n. INPATIENT MEDICATIONS: 1. Sliding scale insulin. 2. Protonix 40 mg IV q.12 hours. 3. Zofran p.r.n. SOCIAL HISTORY: He is a former smoker. No alcohol or drug use. He is . He is full code status. FAMILY HISTORY: Noncontributory. PHYSICAL EXAMINATION: VITAL SIGNS: Temperature 98.8, pulse 74, blood pressure 148/75, and 99% oxygen saturation on room air. GENERAL: An 80-year-old man, sitting up in bed comfortably, in no acute distress. SKIN: No jaundice. No rashes were palpable. EYES: No scleral icterus. Extraocular movements intact. ENT: Mucous membranes are moist. No oral lesions. LYMPH: No submandibular or supraclavicular lymphadenopathy. THYROID: Nontender to palpation. HEART: Regular rate and rhythm. Pacemaker is in place. LUNGS: Clear to auscultation bilaterally. No respiratory distress. ABDOMEN: Nondistended. Bowel sounds present. Soft and nontender to palpation throughout. EXTREMITIES: No peripheral edema. VESSELS: Radial pulses 2+ bilaterally. NEUROLOGIC: Cranial nerves 2 through 12 are intact bilaterally. No focal deficits. LABORATORY STUDIES: Hemoglobin initially 15.4, this morning is 14.1; WBC initially 18.1, now this morning is 11.9; platelets 100. INR 1.0. BUN 23, creatinine 1.37, glucose 260. LFTs all normal with total bilirubin 0.6, alkaline phosphatase 80, AST is 19, ALT 11, albumin 4.2. Troponin 0.017. COVID PCR negative. Lipase only 13. IMAGING STUDIES: Chest x-ray shows pacemaker and postoperative changes of sternotomy. There is possible lingular infiltrate. ASSESSMENT AND PLAN: 1. Hematemesis, acute. 2. Nausea and vomiting, improved this morning. The patient may indeed have had some coffee-grounds emesis with his repeated vomiting yesterday, but no overt red hematemesis or any melena. Encouragingly, his hemoglobin is stable this morning at 14.1 and BUN is not elevated. He is feeling a bit better this morning with antiemetics. I do think it would be reasonable to proceed with EGD for further investigation. We will plan on this for tomorrow morning. In the meantime, with his symptomatic improvement, we will go ahead and see if he can tolerate a full liquid diet today, then n.p.o. after midnight. Continue on the pantoprazole 40 mg IV twice daily in the meantime. Further recommendations following EGD tomorrow. Thank you for the consultation. Please call anytime with questions or concerns. Job ID: [id number]
[2020-08-08 12:14] LABS: Hemoglobin 14.2 g/dL (14.0-18.0)
[2020-08-08] MEDS ORDERED: Polyethylene Glycol 3350 17 GM Packet PO PRN (14:14)
[2020-08-08] MEDS: Atorvastatin Calcium 10 MG TAB PO SCH (20:14)
[2020-08-08] MEDS: Latanoprost 0.005% Ophth Soln 2.5 ml Bottle EA EYE SCH (20:14)
[2020-08-08] MEDS: hydrALAZINE 25 MG TAB PO SCH (20:14)
[2020-08-09] MEDS ORDERED: Ondansetron HCl/PF 4 MG/2 ML Vial IVP PRN (08:47)
[2020-08-09] MEDS ORDERED: Promethazine HCl 25 MG/ML VIAL IM PRN (08:47)
[2020-08-09] MEDS ORDERED: Promethazine HCl 25 MG/ML VIAL SLOW IVP PRN (08:47)
[2020-08-09] MEDS: Finasteride 5 MG TAB PO SCH (09:26)
[2020-08-09] MEDS: Sodium Chloride 0.9% 1,000 ML IV SCH (09:26)
[2020-08-09] MEDS: hydrALAZINE 25 MG TAB PO SCH ×2 (09:26→20:50)
[2020-08-09] MEDS: Amlodipine 5 MG TAB PO SCH (09:26)
[2020-08-09] MEDS: Pantoprazole 40 MG VIAL IVP SCH ×2 (09:26→20:50)
--- NOTE | 2020-08-09 09:34 | OP ---
DATE OF PROCEDURE: 08/09/2020 PROCEDURE PERFORMED: Esophagogastroduodenoscopy with biopsy. INDICATION FOR PROCEDURE: Possible hematemesis, nausea/vomiting. DESCRIPTION OF PROCEDURE: After the risks and benefits of the procedure were explained to the patient including risks of bleeding, infection, perforation, reactions to anesthesia, aspiration, and/or pain, informed consent was obtained. The patient was then taken to the endoscopy suite, where the patient was maneuvered into the left lateral decubitus position. Once in adequate position, deep sedation was administered via propofol and anesthesia support. Once adequate sedation was achieved, the standard gastroscope was introduced into the mouth with intubation of the esophagus, stomach, and the proximal small intestines with the findings listed below. The patient tolerated the procedure well with no immediate perioperative complications. On conclusion of the procedure, all equipment was removed from the patient and he was transferred to PACU in satisfactory condition. FINDINGS: Esophagus: A 1 cm patch of salmon-colored mucosa was seen incidentally in the upper esophagus consistent with an inlet patch, but there was no evidence of erosive changes, erythema, or stricture formation around this lesion. Otherwise, normal-appearing mucosa was seen in the upper and mid esophagus; however in the distal esophagus, a few erosions measuring between 5 to 10 mm in size were seen near the gastroesophageal junction. A 3 mm superficial ulceration was also seen in the distal esophagus, but did not display any high-risk stigmata of bleeding or evidence of active/recent bleeding. Also, located in this region was a 5 cm hiatal hernia with the diaphragmatic pinch well seen at 44 cm past the incisors while the gastroesophageal junction was seen at 39 cm past the incisors. Otherwise, there was no evidence of mass lesions or active/recent bleeding. Stomach: Normal-appearing mucosa was seen in the gastric cardia, fundus, body, greater curvature, and incisura; however, multiple small erosions were seen in the gastric antrum without overt ulceration formation. There was also no evidence of active or recent bleeding seen in this region. Multiple biopsies were then taken throughout the stomach in a random fashion for evaluation of possible H pylori versus NSAID gastritis. There was no evidence of mass lesions during this portion of the examination. Duodenum: Mildly increased mucosal erythema was seen in the duodenal bulb without evidence of erosions or ulcerations. Normal-appearing mucosa was seen in the second portion of the duodenum. There was no evidence of erosions, ulcerations, mass lesions, or active/recent bleeding. IMPRESSION: 1. LA grade B reflux mediated erosive esophagitis. 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 2. 5 cm hiatal hernia likely contributing to #1. 3. Erosive gastritis in the gastric antrum with biopsies taken for possible H pylori versus NSAID gastritis. 4. Mild duodenitis, likely secondary to either H pylori or NSAID use. 5. 1 cm upper esophagus inlet patch (incidental finding). RECOMMENDATIONS: 1. Would continue to trend the patient's hemoglobin and hematocrit and transfuse as necessary to maintain hemoglobin and hematocrit of 7/21. 2. Continue to monitor clinically for signs of active GI bleeding. 3. Continue the patient on PPI 40 mg b.i.d., but can transfer to oral formulation. 4. We will follow up on the biopsy results and treat if positive for H pylori. 5. Would consider decreasing the aspirin 81 mg daily if clinically appropriate (would confer with Cardiology prior to doing this). 6. Would continue with aggressive antiemetic regimen with nausea and vomiting, likely related to acid reflux. 7. If the patient's nausea and vomiting are under good control, the patient could be discharged from the hospital with followup in the GI clinic in 2 to 3 weeks. 8. I would recommend a repeat upper endoscopy in 2 to 3 months for re-evaluation of the salmon-colored mucosa in the distal esophagus and evaluation of possible Wilkinson esophagus once adequately treated for his reflux esophagitis. We will sign off at this time. Please call with any questions. Job ID: [id number]
[2020-08-09] MEDS ORDERED: Lidocaine 1% PF 5 ML VIAL ONE (11:04)
[2020-08-09] MEDS ORDERED: PROPOFOL 200 MG/20 ML VIAL ONE (11:04)
[2020-08-09] MEDS: HumaLOG 300 UNITS/3 ML VIAL SC PRN ×2 (12:33→17:54)
--- NOTE | 2020-08-09 16:26 | PDOC.HOSPP ---
- Subjective Encounter Date: 08/09/20 Subjective: well appearing in no acute distress, no complaints. - Objective Vital Signs & Weight: Vital Signs (12 hours) Temp Pulse Resp BP Pulse Ox 08/09/20 12:05 98.5 F 60 12 177/82 H 97 08/09/20 09:26 72 08/09/20 09:17 98.4 F 65 16 172/74 H 96 Weight Weight 215 lb 13.321 oz I&O: 08/08/20 08/09/20 08/10/20 06:59 06:59 06:59 Intake Total 2560 Output Total 300 950 Balance -300 1610 Result Diagrams: 08/08/20 12:01 08/08/20 05:53 Additional Labs: Accuchecks 08/09/20 08/09/20 08/08/20 11:08 05:26 20:21 POC Glucose 160 H 125 H 107 H Hospitalist ROS - Medication Medications: Active Medications Generic Name Dose Route Start Last Admin Trade Name Freq PRN Reason Stop Dose Admin Amlodipine Besylate 2.5 mg 08/09/20 09:00 08/09/20 09:26 Amlodipine 5 Mg Tab PO 2.5 mg DAILY KIESHA Administration Atorvastatin Calcium 10 mg 08/08/20 21:00 08/08/20 20:14 Atorvastatin Calcium 10 Mg Tab PO 10 mg HS KIESHA Administration Finasteride 5 mg 08/09/20 09:00 08/09/20 09:26 Finasteride 5 Mg Tab PO 5 mg DAILY KIESHA Administration Hydralazine HCl 50 mg 08/08/20 21:00 08/09/20 09:26 Hydralazine 25 Mg Tab PO 50 mg BID KIESHA Administration Insulin Human Lispro 0 units 08/08/20 05:15 08/09/20 12:33 Humalog 300 Units/3 Ml Vial SC 2 unit .MILD SLIDING SCALE PRN Administration MILD SLIDING SCALE Protocol Latanoprost 1 drop 08/08/20 21:00 08/08/20 20:14 Latanoprost 0.005% Ophth Soln 2.5 Ml Bottle EA EYE 1 drop HS KIESHA Administration Metoprolol Succinate 150 mg 08/09/20 09:00 08/09/20 09:26 Metoprolol Succinate Xl 50 Mg Tab PO 150 mg DAILY KIESHA Administration Ondansetron HCl 4 mg 08/07/20 23:37 08/08/20 01:59 Ondansetron Pf 4 Mg/2 Ml Vial IVP 4 mg Q6H PRN Administration Nausea/Vomiting Pantoprazole Sodium 40 mg 08/08/20 09:00 08/09/20 09:26 Pantoprazole 40 Mg Vial IVP 40 mg Q12HR KIESHA Administration - Exam Eye: PERRL ENT: normocephalic atraumatic Neck: supple, symmetric Heart: RRR, no murmur, no gallops Respiratory: CTAB, no wheezes, no rales Gastrointestinal: soft, non-tender, non-distended, normal bowel sounds Extremities: no cyanosis, no clubbing Skin: normal turgor Neurological: cranial nerve grossly intact, normal sensation to touch Hosp A/P (1) Upper GI bleed Code(s): K92.2 - GASTROINTESTINAL HEMORRHAGE, UNSPECIFIED Status: Acute (2) CAD (coronary artery disease) Code(s): I25.10 - ATHSCL HEART DISEASE OF [place] CORONARY ARTERY W/O ANG PCTRS Status: Acute (3) DM2 (diabetes mellitus, type 2) Status: Chronic (4) HTN (hypertension) Code(s): I10 - ESSENTIAL (PRIMARY) HYPERTENSION Status: Chronic - Plan This an 80-year-old male patient with a history of carotid artery disease status post CABG, hypertension who presented with nausea, vomiting, and hematemesis the day of admission. Upper GI bleed EGD showed gastritis/duodenitis/Wilkinson esophagus, Hpylori pending. will need another EGD in 2 to 3 month. CKD Avoid nephrotoxic agents. Stable. Leukocytosis Resolving, likely stress reaction. Carotid artery disease status post CABG Hold ASA for now, most likely will discharge on baby ASA, might touch base with Dr Hopper of cardiology. Hypertension resume home medications, add Hydralazine IV.PRN Constipation Resume home medications. DVT prophylaxisSCD CODE STATUSfull code
[2020-08-09] MEDS ORDERED: hydrALAZINE 20 MG/ML VIAL SLOW IVP PRN (16:27)
[2020-08-09] MEDS: Latanoprost 0.005% Ophth Soln 2.5 ml Bottle EA EYE SCH (20:49)
[2020-08-09] MEDS: Atorvastatin Calcium 10 MG TAB PO SCH (20:50)
[2020-08-10] MEDS: HumaLOG 300 UNITS/3 ML VIAL SC PRN ×2 (00:16→12:13)
[2020-08-10 05:59] LABS: #Eosinphils 0.3 thou/uL (0.0-0.7); #Lymphocytes 1.2 thou/uL (1.20-3.40); #Monocytes 1.3 thou/uL (0.11-0.59); #Neutrophils 7.9 thou/uL (1.40-6.50); %Basophils 0.5 % (0.0-1.0); %Eosinophils 3.2 % (0.0-10.0); %Lymphocytes 11.1 % (21.0-51.0); %Monocytes 11.7 % (0.0-10.0); %Neutrophils 73.6 % (42.0-75.0); Hemoglobin 13.8 g/dL (14.0-18.0); Mean Corpuscular HGB CONC 32.7 g/dL (32.0-36.0); Mean Corpuscular Hemoglobin 31.2 pg (27.0-31.0); Mean Corpuscular Volume 95.3 fL (78.0-98.0); Mean Platelet Volume 9.9 fL (7.4-10.4); Platelet Count 85 thou/uL (130-400); RBC Distribution Width 12.3 % (11.5-14.5); Red Blood Cell (RBC) Count 4.42 mill/uL (4.70-6.10); White Blood Cell (WBC) Count 10.7 thou/uL (4.8-10.8)
[2020-08-10 06:18] LABS: Anion Gap 12 mmol/L (10-20); BUN (Urea Nitrogen) 18 mg/dL (8.4-25.7); Calc. Creatinine Clearance 58 mL/min (70-130); Calcium 8.2 mg/dL (7.8-10.44); Carbon Dioxide 23 mmol/L (23-31); Chloride 107 mmol/L (98-107); Glucose 148 mg/dL (83-110); Potassium 3.8 mmol/L (3.5-5.1); Sodium 138 mmol/L (136-145)
[2020-08-10] MEDS: Amlodipine 5 MG TAB PO SCH (08:51)
[2020-08-10] MEDS: Finasteride 5 MG TAB PO SCH (08:53)
[2020-08-10] MEDS: hydrALAZINE 25 MG TAB PO SCH (08:53)
[2020-08-10] MEDS: Pantoprazole 40 MG VIAL IVP SCH (08:54)
[2020-08-10 11:31] VITALS: BP 145/73; TEMP 98.4
--- NOTE | 2020-08-10 13:07 | PDOC.DS.DS ---
Provider - Provider Date of Admission: 08/08/20 14:12 Date of Discharge: 08/10/20 Admitting Provider: Jc Barnett MD Primary Care Physician: Chitra Mancia MD Course - Hospital Course Hospital Course: his an 80-year-old male patient with a history of carotid artery disease status post CABG, hypertension who presented with nausea, vomiting, and hematemesis the day of admission. Upper GI bleed EGD showed gastritis/duodenitis/Wilkinson esophagus, Hpylori negative will need another EGD in 2 to 3 month.the name and contact info of GI will be given. CKD Avoid nephrotoxic agents. Stable. Carotid artery disease status post CABG Hold ASA for now, most likely will discharge on baby ASA, I did touch base with Dr Hopper of cardiology, recommendation is to restart ASA in 2 days and to resume with baby aspirin. Hypertension resume home medications. recommend to see PCP in a week. the above was discussed with and she is in agreement. Resuscitation Status: 08/07/20 23:37 Resuscitation Status Routine Resuscitation Status: FULL: Full Resuscitation - Labs Lab Results: 08/10/20 05:46 08/10/20 05:46 Abnormal Lab Results - Last 48 hrs 08/10/20 05:46: Creatinine 1.35 H 08/10/20 05:46: RBC 4.42 L, Hgb 13.8 L, MCH 31.2 H, Plt Count 85 L, Lymphocytes % 11.1 L, Monocytes % 11.7 H, Neutrophils # 7.9 H, Monocytes # 1.3 H - Physical Exam Vitals: Vital Signs (12 hours) Temp Pulse Resp BP BP Pulse Ox 08/10/20 11:29 98.4 F 73 16 145/73 H 98 08/10/20 08:53 70 08/10/20 08:51 70 146/72 H 08/10/20 08:29 98.7 F 70 18 146/72 H 98 08/10/20 08:00 98 08/10/20 05:50 67 163/76 H 08/10/20 03:23 98.9 F 67 16 177/76 H 96 Weight Weight 215 lb 13.321 oz Physical Exam: The patient was seen and examined on the day of discharge. Problem - Problem (1) Upper GI bleed Code(s): K92.2 - GASTROINTESTINAL HEMORRHAGE, UNSPECIFIED Status: Acute (2) CAD (coronary artery disease) Code(s): I25.10 - ATHSCL HEART DISEASE OF [place] CORONARY ARTERY W/O ANG PCTRS Status: Acute (3) DM2 (diabetes mellitus, type 2) Status: Chronic (4) HTN (hypertension) Code(s): I10 - ESSENTIAL (PRIMARY) HYPERTENSION Status: Chronic - Time spent with Patient (mins): 35 Plan - Discharge Medications Prescriptions: Aspirin [Adult Aspirin Regimen] 81 mg PO DAILY #30 tablet. Pantoprazole [Protonix] 40 mg PO BID #60 pk Home Medications: Medication Instructions Recorded Confirmed Type Atorvastatin Calcium 10 mg PO HS 06/28/17 08/08/20 History Latanoprost [Latanoprost 0.05% 1 drop EA EYE HS 06/28/17 08/08/20 History Ophth] Metoprolol Succinate [Toprol XL] 150 mg PO DAILY 06/28/17 08/08/20 History Polyethylene Glycol 3350 [Miralax] 17 gm PO DAILY PRN 06/28/17 08/08/20 History hydrALAZINE HCl [Hydralazine HCl] 50 mg PO BID 06/28/17 08/08/20 History sitaGLIPtin Phosphate [Januvia] 100 mg PO DAILY 06/28/17 08/08/20 History Amlodipine [Norvasc] 2.5 mg PO DAILY #30 tab 06/29/17 08/08/20 Rx Finasteride [Proscar] 5 mg PO DAILY 08/08/20 08/08/20 History glipiZIDE [glipiZIDE ER] 5 mg PO QAM-WM 08/08/20 08/08/20 History Aspirin [Adult Aspirin Regimen] 81 mg PO DAILY #30 tablet. 08/10/20 Rx Pantoprazole [Protonix] 40 mg PO BID #60 pk 08/10/20 Rx Allergies: Penicillins Allergy (Verified 06/28/17 20:58) Rash - Discharge Instructions Discharge Instructions:: TAKE ALL MEDICATION DIRECTED BY YOUR PHYSICIAN, KEEP ALL FOLLOW UP APPOINTMENTS, DO NOT DRIVE OR OPERATE MACHINERY WHILE ON NARCOTIC PAIN MEDICATION, CALL MD'S OFFICE FOR QUESTIONS AND CONCERNS. Activity:: Activity as Tolerated - Follow up Plan Referrals: Chitra Mancia MD [Primary Care Provider] - 7 Days (CALL MD'S OFFICE FO R APPOINTMENT IN A WEEK.) Christian Arnett MD [Active] - (CALL MD'S OFFICE FOR FOLLOW UP APPOINTMENT 2-3 MOS.) Disposition: HOME Quality - Care Measures CORE MEASURES:: N/A
--- NOTE | 2020-08-11 05:18 | PQF ---
Dear : Anabella Reina Date 08/11/2019 Please exercise your independent, professional judgment in responding to the clarification form. Clinical indicators are provided on the bottom of this form for your review Please check appropriate box(es): [ ] Acute Renal Failure (ARF) / Acute Kidney Injury (CRISTINA) [ ] Acute on Chronic Renal Failure please specify Stage of CKD (see below) [ y ] CKD stage 3____ without CRISTINA [ ] Other diagnosis please specify [ ] Unable to determine Physician Signature: Date/Time: For continuity of documentation, please document condition throughout progress notes and discharge summary. Thank You. To be completed by CDI/Coding staff for physician review: Present Clinical Indicators - Signs / Symptoms / Labs Results and Location in Medical Record [ x ] Creatinine: 1.48H, 1.37H, 1.35 Laboratory [ x ] GFR: 46, 50, 51 Laboratory [ x ] Hx of CKD H and P pg.1 [ x ] Nausea and vomiting H and P pg.1 [ x ] Creatinine was elevated at 1.48 H and P pg.1 Present Risk Factors Results and Location in Medical Record [ x ] 80 years old H and P pg.1 [ x ] HTN H and P pg.1 [ x ] DM H and P pg.1 [ x ] HLD H and P pg.1 [ x ] CAD H and P pg.1 [ x ] Former smoker H and P pg.2 Present Treatments Results and Location in Medical Record [ x ] IV Fluids MAR [ x ] Avoid nephrotoxic agent H and P pg.4 [ x ] Creatinine monitoring CDS/Plastic Panel Installer Signature: Alexander Tran Phone #: ext [phone] Date 08/11/2019 National [employer] Guidelines for CKD Staging Stage I Kidney damage with normal or increased GFR GFR > 90 Stage II Kidney damage with mildly decreased GFR GFR 60-89 Stage III Kidney damage with moderately decreased GFR GFR 30-59 Stage IV Kidney damage with severely decreased GFR GFR 16-29 Stage V Kidney failure GFR<15 ESRD End Stage Renal Disease On dialysis Acute Renal Failure/Acute Kidney Failure defined as: Increases in SCr by (>) 0.3 mg/dl within 48 hours OR- Increases in SCr by (>) 1.5 times baseline, known or presumed to have occurred within the prior 7 days OR- Urine volume < 0.5 ml/kg/hour for 6 hours (KDIGO supplement 2012 for RIFLE/KELLY criteria) This is a permanent part of the Medical Record MTDD
--- NOTE | 2020-08-11 06:45 | PQF ---
Dear : Anabella Reina Date 08/10/2020 Please exercise your independent, professional judgment in responding to the clarification form. Clinical indicators are provided on the bottom of this form for your review Can you please further clarify the Etiology of Upper GI Bleed? Please check appropriate box(es): [ ] Erosive esophagitis [ ] Wilkinson Esophagus [ y] Erosive gastritis [ y ] Duodenitis [ ] Other diagnosis please specify [ ] Unable to determine Physician Signature: Date/Time: For continuity of documentation, please document condition throughout progress notes and discharge summary. Thank You. 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 OP report pg.2 [ X] 2 tongues of salmon colored mucosa seen extending proximally from the gastroesophageal junction OP report pg.2 [ X] Concerning for Wilkinson esophagus OP report pg.2 [ X] Erosive gastritis in the gastric antrum OP report pg.2 [ X] Mild duodenitis OP report pg.2 [ X] Hematemesis H and P pg.1 [ X] Upper GI bleed, unclear etiology, possible GERD/PUD H and P pg.3 [ X] EGD showed gastritis/duodenitis/Wilkinson esophagus DS pg.1 Present Risk Factors Results and Location in Medical Record [ X] A 80 years old H and P pg.1 [ X] HTN H and P pg.1 [ X] DM H and P pg.1 [ X] HLD H and P pg.1 [ X] CKD H and P pg.1 [ X] Gastritis DS pg.1 [ X] Duodenitis DS pg.1 [ X] Wilkinson esophagus DS pg.1 Present Treatments Results and Location in Medical Record [ X] GI Consult pg.1 Case 08/08 [ X] EGD with Biopsy OP report pg.1 [ X] IV Fluids MAR [ X] Protonix 40 mg IV MAR CDS/Occupational Health Nurse Signature: Alexander Tran Phone #: ext [phone] Date 08/10/2020 This is a permanent part of the Medical Record MTDD
== END 2020-08-10 15:30 | disposition home or self-care (01) | DRG 379 ==
LOC: ERS 19:39 → SURG B 08-08 01:11 → OBSVTOIN 08-08 14:12
PROVIDERS: ADMIT Student in an Organized Health Care Education/Training Program; ATTEND Internal Medicine
PROC: 0DB78ZX Excision of Stomach, Pylorus, Via Natural or Artificial Opening Endoscopic, Diagnostic (ICD-10-PCS; principal; 2020-08-09)
DX: K29.01 Acute gastritis with bleeding (principal); K29.81 Duodenitis with bleeding; Z20.822 Contact with and (suspected) exposure to COVID-19; I25.10 Atherosclerotic heart disease of native coronary artery without angina pectoris; Z95.1 Presence of aortocoronary bypass graft; N18.30 Chronic kidney disease, stage 3 unspecified; I12.9 Hypertensive chronic kidney disease with stage 1 through stage 4 chronic kidney disease, or unspecified chronic kidney disease; E11.22 Type 2 diabetes mellitus with diabetic chronic kidney disease; D72.829 Elevated white blood cell count, unspecified; K59.09 Other constipation; R12 Heartburn; E78.5 Hyperlipidemia, unspecified; I25.2 Old myocardial infarction; N40.0 Benign prostatic hyperplasia without lower urinary tract symptoms; K44.9 Diaphragmatic hernia without obstruction or gangrene; K22.70 Barrett's esophagus without dysplasia; K22.8 Other specified diseases of esophagus; Z88.0 Allergy status to penicillin; Z95.0 Presence of cardiac pacemaker; Z87.891 Personal history of nicotine dependence; Z79.82 Long term (current) use of aspirin; Z79.4 Long term (current) use of insulin; Z79.899 Other long term (current) drug therapy
CPT/HCPCS: 36415; 36416; 71045; 80048; 80053; 83690; 84484; 85025; 85610; 85730; 86850; 86900; 86901; 87635; 88305; 88312; 93005; C9113; J0360; J2405; J2550; J2704; U0003

== ENCOUNTER 2021-01-28 20:42 | Inpatient (IN) | payer MEDICARE, BC ==
[~2021-01-28 20:42] MED LIST: Iopamidol-370 76% 500 ML 1 ML ONE
[2021-01-28 21:25] LABS: #Eosinphils 0.3 thou/uL (0.0-0.7); #Lymphocytes 1.1 thou/uL (1.20-3.40); #Monocytes 1.1 thou/uL (0.11-0.59); #Neutrophils 10.5 thou/uL (1.40-6.50); %Basophils 0.1 % (0.0-1.0); %Eosinophils 2.5 % (0.0-10.0); %Lymphocytes 8.6 % (21.0-51.0); %Monocytes 8.7 % (0.0-10.0); %Neutrophils 80.1 % (42.0-75.0); Hemoglobin 14.2 g/dL (14.0-18.0); Mean Corpuscular HGB CONC 33.9 g/dL (32.0-36.0); Mean Corpuscular Hemoglobin 32.7 pg (27.0-31.0); Mean Corpuscular Volume 96.3 fL (78.0-98.0); Mean Platelet Volume 10.4 fL (7.4-10.4); Platelet Count 90 thou/uL (130-400); RBC Distribution Width 12.3 % (11.5-14.5); Red Blood Cell (RBC) Count 4.35 mill/uL (4.70-6.10); White Blood Cell (WBC) Count 13.1 thou/uL (4.8-10.8)
[2021-01-28 22:04] LABS: ALT (SGPT) 18 U/L (8-55); AST (SGOT) 16 U/L (5-34); Albumin 4.1 g/dL (3.4-4.8); Alkaline Phosphatase 72 U/L (40-110); Anion Gap 14 mmol/L (10-20); BUN (Urea Nitrogen) 22 mg/dL (8.4-25.7); Bilirubin, Total 0.9 mg/dL (0.2-1.2); CK (CPK) 61 U/L (30-200); Calc. Creatinine Clearance 0 mL/min (70-130); Calcium 9.5 mg/dL (7.8-10.44); Carbon Dioxide 24 mmol/L (23-31); Chloride 99 mmol/L (98-107); Globulin 3.4 g/dL (2.4-3.5); Glucose 321 mg/dL (83-110); Lipase 20 U/L (8-78); Magnesium 2.2 mg/dL (1.6-2.6); Potassium 4.9 mmol/L (3.5-5.1); Protein, Total 7.5 g/dL (5.8-8.1); Sodium 132 mmol/L (136-145)
[2021-01-28] MEDS ORDERED: Sodium Chloride 0.9% 1,000 ML IV SCH (22:45)
[2021-01-28] MEDS ORDERED: Aspirin Chewable 81 MG TAB ONE (23:12)
[2021-01-28 23:17] LABS: Bilirubin Negative (Negative); Blood, Urine Negative (Negative); Clarity Clear (Clear); Glucose, Urine (Dipstick) Greater than 1000 mg/dL (Negative); Ketone, Urine Negative (Negative); Leukocyte Negative Leu/uL (Negative); Nitrite Negative (Negative); Protein, Urine (Dipstick) 10 mg/dL (Neg-Trace); Specific Gravity, Urine 1.014 (1.002-1.036); Urobilinogen Normal mg/dL (Less than 2)
[2021-01-29] MEDS ORDERED: Clopidogrel Bisulfate 75 MG TAB PO SCH (00:15)
[2021-01-29 05:53] LABS: Cardiac Risk 2.7 (Less than 4.5)
[2021-01-29] MEDS ORDERED: Enoxaparin Sodium 40 MG/0.4 ML SYRINGE SC SCH (09:00)
[2021-01-29] MEDS: Aspirin 325 mg Enteric Coated Tablet PO SCH (09:17)
[2021-01-29] MEDS: Clopidogrel Bisulfate 75 MG TAB PO SCH (10:03)
[2021-01-29] MEDS ORDERED: Polyethylene Glycol 3350 17 GM Packet PO PRN (15:53)
[2021-01-29] MEDS ORDERED: Dextrose 5% in Water 1,000 ML IV PRN (15:55)
[2021-01-29] MEDS ORDERED: Dextrose 50% Abboject 50 ML SYRINGE SLOW IVP PRN (15:55)
[2021-01-29] MEDS ORDERED: hydrALAZINE 20 MG/ML VIAL SLOW IVP PRN (15:56)
[2021-01-29] MEDS: HumaLOG 300 UNITS/3 ML VIAL SC PRN ×2 (17:23→20:13)
[2021-01-29] MEDS: Latanoprost 0.005% Ophth Soln 2.5 ml Bottle EA EYE SCH (20:12)
[2021-01-29] MEDS: Pantoprazole 40 MG GRANULES PACKET PO SCH (20:13)
[2021-01-29] MEDS: Atorvastatin Calcium 40 MG TAB PO SCH (20:13)
[2021-01-30 05:34] LABS: #Eosinphils 0.4 thou/uL (0.0-0.7); #Lymphocytes 1.5 thou/uL (1.20-3.40); #Monocytes 1.3 thou/uL (0.11-0.59); #Neutrophils 8.9 thou/uL (1.40-6.50); %Basophils 0.4 % (0.0-1.0); %Eosinophils 3.3 % (0.0-10.0); %Lymphocytes 12.4 % (21.0-51.0); %Monocytes 10.8 % (0.0-10.0); %Neutrophils 73.2 % (42.0-75.0); Hemoglobin 14.7 g/dL (14.0-18.0); Mean Corpuscular HGB CONC 32.8 g/dL (32.0-36.0); Mean Corpuscular Hemoglobin 31.6 pg (27.0-31.0); Mean Corpuscular Volume 96.3 fL (78.0-98.0); Mean Platelet Volume 10.5 fL (7.4-10.4); Platelet Count 90 thou/uL (130-400); RBC Distribution Width 12.2 % (11.5-14.5); Red Blood Cell (RBC) Count 4.65 mill/uL (4.70-6.10); White Blood Cell (WBC) Count 12.2 thou/uL (4.8-10.8)
[2021-01-30 05:52] LABS: Anion Gap 14 mmol/L (10-20); BUN (Urea Nitrogen) 17 mg/dL (8.4-25.7); Calc. Creatinine Clearance 46 mL/min (70-130); Calcium 9.3 mg/dL (7.8-10.44); Carbon Dioxide 22 mmol/L (23-31); Chloride 104 mmol/L (98-107); Glucose 158 mg/dL (83-110); Potassium 4.1 mmol/L (3.5-5.1); Sodium 136 mmol/L (136-145)
[2021-01-30] MEDS: HumaLOG 300 UNITS/3 ML VIAL SC PRN ×4 (06:00→21:52)
[2021-01-30] MEDS: Aspirin 325 mg Enteric Coated Tablet PO SCH (09:49)
[2021-01-30] MEDS: Clopidogrel Bisulfate 75 MG TAB PO SCH (09:49)
[2021-01-30] MEDS: Pantoprazole 40 MG GRANULES PACKET PO SCH ×2 (09:50→21:44)
[2021-01-30] MEDS: Finasteride 5 MG TAB PO SCH (09:50)
[2021-01-30] MEDS: Enoxaparin Sodium 40 MG/0.4 ML SYRINGE SC SCH (09:51)
[2021-01-30] MEDS ORDERED: Aspirin 325 mg Enteric Coated Tablet PO SCH (13:13)
[2021-01-30] MEDS ORDERED: Clindamycin/D5W 900 MG in Premix Bag 1 BAG IVPB SCH (13:15)
[2021-01-30] MEDS: Atorvastatin Calcium 40 MG TAB PO SCH (21:44)
[2021-01-30] MEDS: Latanoprost 0.005% Ophth Soln 2.5 ml Bottle EA EYE SCH (21:44)
[2021-01-31] MEDS ORDERED: Fentanyl 100 MCG/2 ML VIAL ONE (06:41)
[2021-01-31] MEDS ORDERED: Phenylephrine 10 MG/ML VIAL ONE (06:41)
[2021-01-31] MEDS ORDERED: Heparin 5,000 UNITS/ML VIAL ONE (08:51)
[2021-01-31] MEDS ORDERED: EPINEPHrine 1 MG/ML AMP ONE (08:51)
[2021-01-31] MEDS ORDERED: Protamine Sulfate 50 MG/5 ML VIAL ONE (08:51)
[2021-01-31] MEDS ORDERED: Bupivacaine PF 0.5% 30 ML VIAL ONE (08:51)
[2021-01-31] MEDS ORDERED: Dexamethasone 4 mg/ml Vial ONE (08:51)
[2021-01-31] MEDS ORDERED: Clindamycin/D5W 900 mg/50 ml Premix Bag ONE ×2 (09:12→19:33)
[2021-01-31] MEDS ORDERED: Insulin Regular 300 UNITS/3 ML VIAL ONE (09:20)
[2021-01-31] MEDS ORDERED: Lidocaine 1% PF 5 ML VIAL ONE (10:30)
[2021-01-31] MEDS ORDERED: Labetalol HCl 100 MG/20 ML VIAL ONE (10:30)
[2021-01-31] MEDS ORDERED: PROPOFOL 200 MG/20 ML VIAL ONE (10:30)
[2021-01-31] MEDS ORDERED: Rocuronium Bromide 10 MG/ML (10ML VIAL) ONE (10:30)
[2021-01-31] MEDS ORDERED: Ondansetron PF 4 MG/2 ML Vial ONE (10:30)
[2021-01-31] MEDS ORDERED: Ketorolac Tromethamine 30 MG/ML VIAL ONE (10:30)
[2021-01-31] MEDS ORDERED: Glycopyrrolate 0.2 MG/ML 5 ML SYRINGE ONE (10:30)
[2021-01-31] MEDS ORDERED: Promethazine HCl 25 MG/ML VIAL IM PRN ×2 (11:28→17:31)
[2021-01-31] MEDS ORDERED: Ondansetron HCl/PF 4 MG/2 ML Vial IVP PRN (11:28)
[2021-01-31] MEDS ORDERED: Promethazine HCl 25 MG/ML VIAL IVPB PRN (11:28)
[2021-01-31] MEDS ORDERED: Naloxone HCl 0.4 mg/ml Vial ONE (11:45)
[2021-01-31] MEDS ORDERED: Fentanyl 100 MCG/2 ML VIAL SLOW IVP PRN (17:31)
[2021-01-31] MEDS ORDERED: Nitroglycerin 50 MG/250 ML BOT 250 ML IVPB PRN (17:31)
[2021-01-31] MEDS ORDERED: Acetaminophen 325 MG TAB PO PRN (17:31)
[2021-01-31] MEDS ORDERED: Ondansetron PF 4 MG/2 ML Vial IVP PRN (17:31)
[2021-01-31] MEDS ORDERED: niCARdipine 25 MG in Sodium Chloride 0.9% 250 ML 240 ML IVPB PRN (17:31)
[2021-01-31] MEDS ORDERED: Phenylephrine 40 MG/NS 250 ML 40 MG in Premix Bag 1 BAG IVPB PRN (17:44)
[2021-01-31] MEDS ORDERED: HumaLOG 300 UNITS/3 ML VIAL ONE (19:38)
[2021-01-31] MEDS: Clopidogrel Bisulfate 75 MG TAB PO SCH (21:14)
[2021-01-31] MEDS: Enoxaparin Sodium 40 MG/0.4 ML SYRINGE SC SCH (21:14)
[2021-01-31] MEDS: Aspirin 81 mg Enteric Coated Tablet PO SCH (21:14)
[2021-01-31] MEDS: Finasteride 5 MG TAB PO SCH (21:15)
[2021-01-31] MEDS: Clindamycin/D5W 900 MG in Premix Bag 1 BAG IVPB SCH (21:15)
[2021-01-31] MEDS: Pantoprazole 40 MG GRANULES PACKET PO SCH ×2 (21:15→22:48)
[2021-01-31] MEDS: Sodium Chloride 0.9% 1,000 ML IV SCH (21:45)
[2021-01-31] MEDS: Atorvastatin Calcium 40 MG TAB PO SCH (22:47)
[2021-02-01] MEDS: Clindamycin/D5W 900 MG in Premix Bag 1 BAG IVPB SCH ×3 (03:23→12:56)
[2021-02-01] MEDS: Latanoprost 0.005% Ophth Soln 2.5 ml Bottle EA EYE SCH ×2 (03:25→23:09)
[2021-02-01 05:05] VITALS: BMI 23.5
[2021-02-01] MEDS: HumaLOG 300 UNITS/3 ML VIAL SC PRN ×3 (05:47→22:08)
[2021-02-01] MEDS: Sodium Chloride 0.9% 1,000 ML IV SCH (06:47)
[2021-02-01] MEDS ORDERED: Senokot S 8.6-50 MG TAB PO PRN (08:39)
[2021-02-01] MEDS ORDERED: hydrALAZINE 20 MG/ML VIAL SLOW IVP PRN (08:39)
[2021-02-01] MEDS ORDERED: Loperamide HCl 2 MG CAP PO PRN (08:39)
[2021-02-01] MEDS ORDERED: Loratadine 10 MG TAB PO PRN (08:39)
[2021-02-01] MEDS ORDERED: Acetaminophen 500 MG TAB PO PRN (08:39)
[2021-02-01] MEDS ORDERED: Ondansetron ODT 4 MG TAB PO PRN (08:39)
[2021-02-01] MEDS ORDERED: Sodium Chloride 0.65% Nasal 44 ML BOT EA NARE PRN (08:39)
[2021-02-01] MEDS: Clopidogrel Bisulfate 75 MG TAB PO SCH (08:39)
[2021-02-01] MEDS ORDERED: Bisacodyl 5 MG TAB PO PRN (08:39)
[2021-02-01] MEDS ORDERED: Temazepam 15 MG CAP PO PRN (08:39)
[2021-02-01] MEDS: Aspirin 81 mg Enteric Coated Tablet PO SCH (08:39)
[2021-02-01] MEDS ORDERED: Calcium Carbonate 500 MG ChewTAB PO PRN (08:39)
[2021-02-01] MEDS ORDERED: Cepastat Lozenges 1 LOZ PO PRN (08:39)
[2021-02-01] MEDS ORDERED: Benzonatate 100 MG CAP PO PRN (08:39)
[2021-02-01] MEDS: Enoxaparin Sodium 40 MG/0.4 ML SYRINGE SC SCH (08:39)
[2021-02-01] MEDS ORDERED: GUAIFENESIN SF SOLN 200 MG/10 ML UDCUP PO PRN (08:39)
[2021-02-01] MEDS ORDERED: HYDROcodone/Acetaminophen 5/325 mg Tablet PO PRN (08:39)
[2021-02-01] MEDS: Finasteride 5 MG TAB PO SCH (08:40)
[2021-02-01] MEDS: Pantoprazole 40 MG GRANULES PACKET PO SCH ×2 (08:40→22:06)
[2021-02-01] MEDS: Atorvastatin Calcium 40 MG TAB PO SCH (22:06)
[2021-02-02] MEDS: HumaLOG 300 UNITS/3 ML VIAL SC PRN ×4 (06:44→20:17)
[2021-02-02] MEDS: Aspirin 81 mg Enteric Coated Tablet PO SCH (09:04)
[2021-02-02] MEDS: Pantoprazole 40 MG GRANULES PACKET PO SCH ×2 (09:04→20:17)
[2021-02-02] MEDS: Finasteride 5 MG TAB PO SCH (09:05)
[2021-02-02] MEDS: Clopidogrel Bisulfate 75 MG TAB PO SCH (09:05)
[2021-02-02] MEDS: Enoxaparin Sodium 40 MG/0.4 ML SYRINGE SC SCH ×5 (09:06→11:29)
[2021-02-02 09:41] LABS: #Eosinphils 0.3 thou/uL (0.0-0.7); #Monocytes 1.2 thou/uL (0.11-0.59); #Neutrophils 10.3 thou/uL (1.40-6.50); %Basophils 0.3 % (0.0-1.0); %Eosinophils 2.4 % (0.0-10.0); %Monocytes 9.2 % (0.0-10.0); %Neutrophils 80.2 % (42.0-75.0); Hemoglobin 13.5 g/dL (14.0-18.0); Mean Corpuscular HGB CONC 33.4 g/dL (32.0-36.0); Mean Corpuscular Hemoglobin 32.5 pg (27.0-31.0); Mean Corpuscular Volume 97.2 fL (78.0-98.0); Mean Platelet Volume 10.2 fL (7.4-10.4); Platelet Count 93 thou/uL (130-400); RBC Distribution Width 12.3 % (11.5-14.5); Red Blood Cell (RBC) Count 4.16 mill/uL (4.70-6.10); White Blood Cell (WBC) Count 12.8 thou/uL (4.8-10.8)
[2021-02-02] MEDS ORDERED: Tamsulosin HCl 0.4 MG CAP PO SCH (10:15)
[2021-02-02] MEDS: Atorvastatin Calcium 40 MG TAB PO SCH (20:17)
[2021-02-02] MEDS: Latanoprost 0.005% Ophth Soln 2.5 ml Bottle EA EYE SCH (20:17)
[2021-02-03 05:44] LABS: #Eosinphils 0.5 thou/uL (0.0-0.7); #Lymphocytes 1.3 thou/uL (1.20-3.40); #Neutrophils 8.3 thou/uL (1.40-6.50); %Basophils 0.2 % (0.0-1.0); %Eosinophils 4.1 % (0.0-10.0); %Monocytes 9.3 % (0.0-10.0); %Neutrophils 74.5 % (42.0-75.0); Hemoglobin 12.7 g/dL (14.0-18.0); Mean Corpuscular HGB CONC 32.1 g/dL (32.0-36.0); Mean Corpuscular Hemoglobin 31.1 pg (27.0-31.0); Mean Corpuscular Volume 97.1 fL (78.0-98.0); Mean Platelet Volume 9.9 fL (7.4-10.4); Platelet Count 92 thou/uL (130-400); RBC Distribution Width 12.2 % (11.5-14.5); Red Blood Cell (RBC) Count 4.09 mill/uL (4.70-6.10); White Blood Cell (WBC) Count 11.2 thou/uL (4.8-10.8)
[2021-02-03 05:56] LABS: ALT (SGPT) 12 U/L (8-55); AST (SGOT) 22 U/L (5-34); Albumin 3.1 g/dL (3.4-4.8); Alkaline Phosphatase 58 U/L (40-110); Anion Gap 13 mmol/L (10-20); BUN (Urea Nitrogen) 16 mg/dL (8.4-25.7); Bilirubin, Total 0.7 mg/dL (0.2-1.2); Calc. Creatinine Clearance 42 mL/min (70-130); Calcium 8.8 mg/dL (7.8-10.44); Carbon Dioxide 22 mmol/L (23-31); Chloride 103 mmol/L (98-107); Globulin 2.9 g/dL (2.4-3.5); Glucose 180 mg/dL (83-110); Magnesium 1.9 mg/dL (1.6-2.6); Phosphorus 2.3 mg/dL (2.3-4.7); Sodium 134 mmol/L (136-145)
[2021-02-03] MEDS: HumaLOG 300 UNITS/3 ML VIAL SC PRN ×2 (06:36→11:26)
[2021-02-03] MEDS ORDERED: Tamsulosin HCl 0.4 MG CAP PO SCH (09:00)
[2021-02-03] MEDS: Clopidogrel Bisulfate 75 MG TAB PO SCH (09:14)
[2021-02-03] MEDS: Finasteride 5 MG TAB PO SCH (09:14)
[2021-02-03] MEDS: Aspirin 81 mg Enteric Coated Tablet PO SCH (09:14)
[2021-02-03] MEDS: Pantoprazole 40 MG GRANULES PACKET PO SCH (09:14)
[2021-02-03] MEDS: Enoxaparin Sodium 40 MG/0.4 ML SYRINGE SC SCH (09:15)
[2021-02-03 15:38] VITALS: BP 141/63; TEMP 98.1
== END 2021-02-03 15:46 | DRG 35 ==
LOC: ERS 20:42 → 2SE 22:15 → CCU 01-31 10:07 → 2SE 02-01 17:22
PROVIDERS: ADMIT Internal Medicine; ATTEND Internal Medicine
PROC: 037K0DZ Dilation of Right Internal Carotid Artery with Intraluminal Device, Open Approach (ICD-10-PCS; principal; 2021-01-31)
DX: I65.23 Occlusion and stenosis of bilateral carotid arteries (principal); E87.1 Hypo-osmolality and hyponatremia; J90 Pleural effusion, not elsewhere classified; N17.9 Acute kidney failure, unspecified; E78.5 Hyperlipidemia, unspecified; E11.22 Type 2 diabetes mellitus with diabetic chronic kidney disease; I25.10 Atherosclerotic heart disease of native coronary artery without angina pectoris; I12.9 Hypertensive chronic kidney disease with stage 1 through stage 4 chronic kidney disease, or unspecified chronic kidney disease; E11.65 Type 2 diabetes mellitus with hyperglycemia; D72.829 Elevated white blood cell count, unspecified; D69.6 Thrombocytopenia, unspecified; N18.30 Chronic kidney disease, stage 3 unspecified; R33.9 Retention of urine, unspecified; Z79.82 Long term (current) use of aspirin; I25.2 Old myocardial infarction; Z95.0 Presence of cardiac pacemaker; Z95.1 Presence of aortocoronary bypass graft; Z88.0 Allergy status to penicillin; Z79.4 Long term (current) use of insulin
CPT/HCPCS: 36415; 36416; 70450; 70496; 70498; 71045; 71250; 76000; 80048; 80053; 80061; 81003; 82550; 83690; 83735; 84100; 84443; 84484; 85025; 93005; 93306; 94640; C1725; C1876; C1884; J0171; J1100; J1642; J1644; J1650; J1815; J1885; J2310; J2370; J2405; J2704; J2720; J3010; J3490; J7620; Q9967; S0020

== ENCOUNTER 2023-07-02 11:09 | Inpatient (IN) | payer MEDICARE, BC ==
[2023-07-02 12:37] LABS: Bacteria/HPF 4+ HPF (None Seen); Bilirubin Negative (Negative); Blood, Urine Negative (Negative); CAUTI Indications for Culture Pelvic or flank pain; Clarity Turbid (Clear); Glucose, Urine (Dipstick) 500 mg/dL (Negative); Ketone, Urine Negative (Negative); Leukocyte 500 Leu/uL (Negative); Nitrite Negative (Negative); Protein, Urine (Dipstick) 20 mg/dL (Neg-Trace); Squamous Epithelial None Seen HPF (0-3); Urobilinogen Normal mg/dL (Less than 2); WBC/HPF 21-50 HPF (0-3); pH, Urine 7.5 (5.0-9.0)
[2023-07-02 12:46] LABS: Urine Culture Reflex Yes Yes
[2023-07-02 13:10] LABS: #Eosinphils 0.2 thou/uL (0.0-0.7); #Monocytes 0.9 thou/uL (0.11-0.59); #Neutrophils 8.2 thou/uL (1.40-6.50); %Basophils 0.3 % (0.0-1.0); %Eosinophils 1.6 % (0.0-10.0); %Lymphocytes 6.1 % (21.0-51.0); %Monocytes 8.5 % (0.0-10.0); %Neutrophils 82.6 % (42.0-75.0); Hematocrit 43.2 % (42.0-52.0); Hemoglobin 14.1 g/dL (14.0-18.0); Mean Corpuscular HGB CONC 32.6 g/dL (32.0-36.0); Mean Corpuscular Hemoglobin 30.1 pg (27.0-31.0); Mean Corpuscular Volume 92.3 fl (78.0-98.0); Mean Platelet Volume 12.4 fL (7.4-10.4); RBC Distribution Width 15.3 % (11.5-14.5); Red Blood Cell (RBC) Count 4.68 mill/uL (4.70-6.10)
[2023-07-02 13:14] LABS: Platelet Count 111 10x3/uL (130-400)
[2023-07-02 13:22] LABS: INR-International Normal Ratio 1.3; Prothrombin Time 16.7 sec (12.0-14.7)
[2023-07-02 13:23] LABS: PTT 32.9 sec (22.9-36.1)
[2023-07-02 13:28] LABS: ALT (SGPT) 10 U/L (8-55); AST (SGOT) 18 U/L (5-34); Albumin 3.2 g/dL (3.4-4.8); Alkaline Phosphatase 71 U/L (40-110); Anion Gap 13 mmol/L (10-20); BUN (Urea Nitrogen) 18 mg/dL (8.4-25.7); CK (CPK) 46 U/L (30-200); Calc. Creatinine Clearance 0 mL/min (70-130); Calcium 8.8 mg/dL (7.8-10.44); Carbon Dioxide 23 mmol/L (23-31); Chloride 102 mmol/L (98-107); Estimated GFR 44; Globulin 3.6 g/dL (2.4-3.5); Glucose 188 mg/dL (83-110); Lipase 11 U/L (8-78); Magnesium 1.9 mg/dL (1.6-2.6); Potassium 4.2 mmol/L (3.5-5.1); Protein, Total 6.8 g/dL (5.8-8.1); Sodium 134 mmol/L (136-145)
[2023-07-02] MEDS ORDERED: cefTRIAXone (ROCEPHIN) 1 GM VIAL ONE (13:48)
[2023-07-02] MEDS ORDERED: LevoFLOXacin 500 mg/D5W 100 ML BAG ONE (13:48)
[2023-07-02] MEDS ORDERED: diphenhydrAMINE 50 MG/ML VIAL ONE (13:48)
[2023-07-02] MEDS ORDERED: Sodium Chloride 0.9% 100 ML ONE (13:49)
[2023-07-02] MEDS ORDERED: Furosemide 40 MG/4 ML VIAL ONE (14:48)
[2023-07-02] MEDS ORDERED: Metoprolol Tartrate 5 MG/5 ML VIAL ONE (15:31)
[2023-07-02] MEDS ORDERED: Glucagon 1 MG/ML KIT IM PRN (15:52)
[2023-07-02] MEDS ORDERED: Dextrose 50% Abboject 50 ML SYRINGE SLOW IVP PRN (15:52)
[2023-07-02] MEDS ORDERED: Dextrose 5% in Water 1,000 ML IV PRN (15:52)
[2023-07-02] MEDS ORDERED: Metoprolol Tartrate 5 MG/5 ML VIAL IVP SCH (16:00)
[2023-07-02] MEDS ORDERED: hydrALAZINE 25 MG TAB PO SCH (16:00)
[2023-07-02] MEDS ORDERED: Acetaminophen 325 MG TAB PO PRN (16:43)
[2023-07-02 18:06] VITALS: BMI 24.1
[2023-07-02] MEDS: Atorvastatin Calcium 40 MG TAB PO SCH (20:23)
[2023-07-02] MEDS: Amiodarone 200 MG TAB PO SCH (20:23)
[2023-07-02] MEDS: hydrALAZINE 25 MG TAB PO SCH (20:23)
[2023-07-02] MEDS: Apixaban 2.5 MG TAB PO SCH (20:23)
[2023-07-02] MEDS: Latanoprost 0.005% Ophth Soln 2.5 ml Bottle EA EYE SCH (23:35)
[2023-07-03 04:47] LABS: #Eosinphils 0.1 thou/uL (0.0-0.7); #Monocytes 1.3 thou/uL (0.11-0.59); #Neutrophils 9.9 thou/uL (1.40-6.50); %Basophils 0.3 % (0.0-1.0); %Eosinophils 0.8 % (0.0-10.0); %Lymphocytes 5.2 % (21.0-51.0); %Monocytes 10.6 % (0.0-10.0); %Neutrophils 82.6 % (42.0-75.0); Hematocrit 40.6 % (42.0-52.0); Hemoglobin 13.1 g/dL (14.0-18.0); Mean Corpuscular HGB CONC 32.3 g/dL (32.0-36.0); Mean Corpuscular Hemoglobin 29.6 pg (27.0-31.0); Mean Corpuscular Volume 91.6 fl (78.0-98.0); Mean Platelet Volume 13.2 fL (7.4-10.4); Platelet Count 109 10x3/uL (130-400); RBC Distribution Width 15.2 % (11.5-14.5); Red Blood Cell (RBC) Count 4.43 mill/uL (4.70-6.10); White Blood Cell (WBC) Count 11.9 10x3/uL (4.8-10.8)
[2023-07-03 05:09] LABS: Anion Gap 15 mmol/L (10-20); BUN (Urea Nitrogen) 19 mg/dL (8.4-25.7); Calc. Creatinine Clearance 40 mL/min (70-130); Carbon Dioxide 26 mmol/L (23-31); Chloride 99 mmol/L (98-107); Estimated GFR 43; Glucose 150 mg/dL (83-110); Potassium 3.6 mmol/L (3.5-5.1); Sodium 136 mmol/L (136-145)
[2023-07-03] MEDS: HumaLOG 300 UNITS/3 ML VIAL SC PRN ×2 (06:07→11:23)
[2023-07-03] MEDS: Clopidogrel Bisulfate 75 MG TAB PO SCH (08:55)
[2023-07-03] MEDS: glipiZIDE XL 10 mg ER.TAB PO SCH (08:55)
[2023-07-03] MEDS: Aspirin 81 mg Enteric Coated Tablet PO SCH (08:55)
[2023-07-03] MEDS: Amiodarone 200 MG TAB PO SCH ×2 (08:55→20:01)
[2023-07-03] MEDS: hydrALAZINE 25 MG TAB PO SCH ×2 (08:55→20:01)
[2023-07-03] MEDS: Lisinopril 20 MG TAB PO SCH (08:55)
[2023-07-03] MEDS: Apixaban 2.5 MG TAB PO SCH ×2 (08:55→20:01)
[2023-07-03] MEDS: Docusate 100 MG CAP PO SCH (08:55)
[2023-07-03] MEDS: Finasteride 5 MG TAB PO SCH (08:55)
[2023-07-03] MEDS: Alogliptin 25 MG TAB PO SCH (08:55)
[2023-07-03] MEDS ORDERED: Amiodarone 200 MG TAB PO SCH (09:00)
[2023-07-03] MEDS: cefTRIAXone\\ROCEPHIN 1 GM in Sodium Chloride 0.9% 100 ML IVPB SCH (15:10)
[2023-07-03] MEDS: Atorvastatin Calcium 40 MG TAB PO SCH (20:01)
[2023-07-03] MEDS: Latanoprost 0.005% Ophth Soln 2.5 ml Bottle EA EYE SCH (20:01)
[2023-07-04] MEDS: Aspirin 81 mg Enteric Coated Tablet PO SCH (09:45)
[2023-07-04] MEDS: Alogliptin 25 MG TAB PO SCH (09:45)
[2023-07-04] MEDS: Apixaban 2.5 MG TAB PO SCH ×2 (09:45→20:24)
[2023-07-04] MEDS: hydrALAZINE 25 MG TAB PO SCH ×2 (09:45→20:24)
[2023-07-04] MEDS: glipiZIDE XL 10 mg ER.TAB PO SCH (09:45)
[2023-07-04] MEDS: Amiodarone 200 MG TAB PO SCH ×2 (09:45→20:24)
[2023-07-04] MEDS: Lisinopril 20 MG TAB PO SCH (09:46)
[2023-07-04] MEDS: Clopidogrel Bisulfate 75 MG TAB PO SCH (09:46)
[2023-07-04] MEDS: Docusate 100 MG CAP PO SCH (09:46)
[2023-07-04] MEDS: Finasteride 5 MG TAB PO SCH (09:46)
[2023-07-04] MEDS: cefTRIAXone\\ROCEPHIN 1 GM in Sodium Chloride 0.9% 100 ML IVPB SCH (15:51)
[2023-07-04] MEDS: Atorvastatin Calcium 40 MG TAB PO SCH (20:24)
[2023-07-04] MEDS: Tamsulosin HCl 0.4 MG CAP PO SCH (20:24)
[2023-07-04] MEDS: Latanoprost 0.005% Ophth Soln 2.5 ml Bottle EA EYE SCH (20:34)
[2023-07-05] MEDS: Alogliptin 25 MG TAB PO SCH (08:54)
[2023-07-05] MEDS: glipiZIDE XL 10 mg ER.TAB PO SCH (08:54)
[2023-07-05] MEDS: Aspirin 81 mg Enteric Coated Tablet PO SCH (08:55)
[2023-07-05] MEDS: hydrALAZINE 25 MG TAB PO SCH ×2 (08:55→20:06)
[2023-07-05] MEDS: Apixaban 2.5 MG TAB PO SCH ×2 (08:55→20:05)
[2023-07-05] MEDS: Lisinopril 20 MG TAB PO SCH (08:55)
[2023-07-05] MEDS: Clopidogrel Bisulfate 75 MG TAB PO SCH (08:55)
[2023-07-05] MEDS: Finasteride 5 MG TAB PO SCH (08:55)
[2023-07-05] MEDS: Docusate 100 MG CAP PO SCH (08:56)
[2023-07-05] MEDS: Amiodarone 200 MG TAB PO SCH ×2 (08:56→20:05)
[2023-07-05 11:20] LABS: #Eosinphils 0.3 thou/uL (0.0-0.7); #Monocytes 1.1 thou/uL (0.11-0.59); #Neutrophils 6.1 thou/uL (1.40-6.50); %Basophils 0.4 % (0.0-1.0); %Lymphocytes 9.8 % (21.0-51.0); %Neutrophils 73.1 % (42.0-75.0); Hemoglobin 12.6 g/dL (14.0-18.0); Mean Corpuscular HGB CONC 32.3 g/dL (32.0-36.0); Mean Corpuscular Hemoglobin 29.9 pg (27.0-31.0); Mean Corpuscular Volume 92.4 fl (78.0-98.0); Mean Platelet Volume 11.9 fL (7.4-10.4); Platelet Count 107 10x3/uL (130-400); RBC Distribution Width 15.4 % (11.5-14.5); Red Blood Cell (RBC) Count 4.22 mill/uL (4.70-6.10); White Blood Cell (WBC) Count 8.4 10x3/uL (4.8-10.8)
[2023-07-05 11:38] LABS: Anion Gap 11 mmol/L (10-20); BUN (Urea Nitrogen) 22 mg/dL (8.4-25.7); Calc. Creatinine Clearance 40 mL/min (70-130); Calcium 8.5 mg/dL (7.8-10.44); Carbon Dioxide 27 mmol/L (23-31); Chloride 99 mmol/L (98-107); Estimated GFR 42; Glucose 108 mg/dL (83-110); Potassium 3.6 mmol/L (3.5-5.1); Sodium 133 mmol/L (136-145)
[2023-07-05] MEDS: cefTRIAXone\\ROCEPHIN 1 GM in Sodium Chloride 0.9% 100 ML IVPB SCH (16:03)
[2023-07-05] MEDS: Tamsulosin HCl 0.4 MG CAP PO SCH (20:05)
[2023-07-05] MEDS: Latanoprost 0.005% Ophth Soln 2.5 ml Bottle EA EYE SCH (20:05)
[2023-07-05] MEDS: Atorvastatin Calcium 40 MG TAB PO SCH (20:05)
[2023-07-06 05:58] LABS: #Eosinphils 0.3 thou/uL (0.0-0.7); #Monocytes 1.1 thou/uL (0.11-0.59); #Neutrophils 6.3 thou/uL (1.40-6.50); %Basophils 0.5 % (0.0-1.0); %Eosinophils 3.4 % (0.0-10.0); %Lymphocytes 7.5 % (21.0-51.0); %Monocytes 12.7 % (0.0-10.0); %Neutrophils 75.2 % (42.0-75.0); Hematocrit 39.4 % (42.0-52.0); Hemoglobin 12.7 g/dL (14.0-18.0); Mean Corpuscular HGB CONC 32.2 g/dL (32.0-36.0); Mean Corpuscular Hemoglobin 29.9 pg (27.0-31.0); Mean Corpuscular Volume 92.7 fl (78.0-98.0); Mean Platelet Volume 12.1 fL (7.4-10.4); RBC Distribution Width 15.3 % (11.5-14.5); Red Blood Cell (RBC) Count 4.25 mill/uL (4.70-6.10); White Blood Cell (WBC) Count 8.3 10x3/uL (4.8-10.8)
[2023-07-06 06:09] LABS: Platelet Count 112 10x3/uL (130-400)
[2023-07-06 06:19] LABS: Anion Gap 11 mmol/L (10-20); BUN (Urea Nitrogen) 23 mg/dL (8.4-25.7); Calc. Creatinine Clearance 38 mL/min (70-130); Calcium 8.8 mg/dL (7.8-10.44); Carbon Dioxide 26 mmol/L (23-31); Chloride 103 mmol/L (98-107); Estimated GFR 40; Glucose 124 mg/dL (83-110); Potassium 3.8 mmol/L (3.5-5.1); Sodium 136 mmol/L (136-145)
[2023-07-06] MEDS: hydrALAZINE 25 MG TAB PO SCH ×2 (09:16→21:03)
[2023-07-06] MEDS: Clopidogrel Bisulfate 75 MG TAB PO SCH (09:16)
[2023-07-06] MEDS: Amiodarone 200 MG TAB PO SCH ×2 (09:16→21:10)
[2023-07-06] MEDS: Lisinopril 20 MG TAB PO SCH (09:16)
[2023-07-06] MEDS: Apixaban 2.5 MG TAB PO SCH ×2 (09:16→21:02)
[2023-07-06] MEDS: Aspirin 81 mg Enteric Coated Tablet PO SCH (09:16)
[2023-07-06] MEDS: glipiZIDE XL 10 mg ER.TAB PO SCH (09:16)
[2023-07-06] MEDS: Alogliptin 25 MG TAB PO SCH (09:16)
[2023-07-06] MEDS: Docusate 100 MG CAP PO SCH (09:16)
[2023-07-06] MEDS: Finasteride 5 MG TAB PO SCH (09:17)
[2023-07-06] MEDS ORDERED: Bisacodyl 10 MG SUPP PR PRN (14:25)
[2023-07-06] MEDS ORDERED: Milk Of Magnesia 30 ML UDCUP PO SCH (14:30)
[2023-07-06] MEDS ORDERED: Polyethylene Glycol 3350 17 GM Packet PO SCH (14:30)
[2023-07-06 17:37] LABS: SARS-CoV-2 NAA Rapid Test Not Detected (NotDetected)
[2023-07-06] MEDS: Atorvastatin Calcium 40 MG TAB PO SCH (21:02)
[2023-07-06] MEDS: Senokot S 8.6-50 MG TAB PO SCH (21:02)
[2023-07-06] MEDS: Linezolid 600 MG TAB PO SCH (21:02)
[2023-07-06] MEDS: Latanoprost 0.005% Ophth Soln 2.5 ml Bottle EA EYE SCH (21:03)
[2023-07-06] MEDS: Tamsulosin HCl 0.4 MG CAP PO SCH (21:04)
[2023-07-07 06:43] LABS: #Eosinphils 0.4 thou/uL (0.0-0.7); %Basophils 0.5 % (0.0-1.0); %Eosinophils 4.3 % (0.0-10.0); %Lymphocytes 9.4 % (21.0-51.0); %Monocytes 12.4 % (0.0-10.0); %Neutrophils 72.6 % (42.0-75.0); Hematocrit 39.1 % (42.0-52.0); Hemoglobin 12.7 g/dL (14.0-18.0); Mean Corpuscular HGB CONC 32.5 g/dL (32.0-36.0); Mean Corpuscular Volume 92.4 fl (78.0-98.0); Mean Platelet Volume 12.1 fL (7.4-10.4); Platelet Count 117 10x3/uL (130-400); RBC Distribution Width 15.1 % (11.5-14.5); Red Blood Cell (RBC) Count 4.23 mill/uL (4.70-6.10); White Blood Cell (WBC) Count 8.3 10x3/uL (4.8-10.8)
[2023-07-07 07:02] LABS: Anion Gap 11 mmol/L (10-20); BUN (Urea Nitrogen) 21 mg/dL (8.4-25.7); Calc. Creatinine Clearance 41 mL/min (70-130); Calcium 8.7 mg/dL (7.8-10.44); Carbon Dioxide 27 mmol/L (23-31); Chloride 103 mmol/L (98-107); Estimated GFR 43; Glucose 105 mg/dL (83-110); Magnesium 2.2 mg/dL (1.6-2.6); Sodium 137 mmol/L (136-145)
[2023-07-07] MEDS: Senokot S 8.6-50 MG TAB PO SCH ×2 (07:52→19:46)
[2023-07-07] MEDS: hydrALAZINE 25 MG TAB PO SCH ×2 (07:52→19:46)
[2023-07-07] MEDS: Aspirin 81 mg Enteric Coated Tablet PO SCH (07:52)
[2023-07-07] MEDS: glipiZIDE XL 10 mg ER.TAB PO SCH (07:52)
[2023-07-07] MEDS: Polyethylene Glycol 3350 17 GM Packet PO SCH (07:52)
[2023-07-07] MEDS: Docusate 100 MG CAP PO SCH (07:53)
[2023-07-07] MEDS: Alogliptin 25 MG TAB PO SCH (07:53)
[2023-07-07] MEDS: Clopidogrel Bisulfate 75 MG TAB PO SCH (07:53)
[2023-07-07] MEDS: Linezolid 600 MG TAB PO SCH ×2 (07:53→19:45)
[2023-07-07] MEDS: Lisinopril 20 MG TAB PO SCH (07:53)
[2023-07-07] MEDS: Amiodarone 200 MG TAB PO SCH ×2 (07:54→19:45)
[2023-07-07] MEDS: Apixaban 2.5 MG TAB PO SCH ×2 (07:54→19:45)
[2023-07-07] MEDS: Finasteride 5 MG TAB PO SCH (07:58)
[2023-07-07 09:35] LABS: Legionella Urinary Ag Negative (Negative); Strep pneumo Urine Ag NEGATIVE (NEGATIVE)
[2023-07-07] MEDS: Latanoprost 0.005% Ophth Soln 2.5 ml Bottle EA EYE SCH (19:46)
[2023-07-07] MEDS: Atorvastatin Calcium 40 MG TAB PO SCH (19:46)
[2023-07-07] MEDS: Tamsulosin HCl 0.4 MG CAP PO SCH (19:46)
[2023-07-08 06:56] LABS: #Eosinphils 0.4 thou/uL (0.0-0.7); #Monocytes 1.1 thou/uL (0.11-0.59); #Neutrophils 6.7 thou/uL (1.40-6.50); %Basophils 0.3 % (0.0-1.0); %Eosinophils 3.9 % (0.0-10.0); %Lymphocytes 8.4 % (21.0-51.0); %Monocytes 12.6 % (0.0-10.0); %Neutrophils 74.1 % (42.0-75.0); Hematocrit 39.5 % (42.0-52.0); Hemoglobin 12.8 g/dL (14.0-18.0); Mean Corpuscular HGB CONC 32.4 g/dL (32.0-36.0); Mean Corpuscular Hemoglobin 29.9 pg (27.0-31.0); Mean Corpuscular Volume 92.3 fl (78.0-98.0); Mean Platelet Volume 12.3 fL (7.4-10.4); Platelet Count 113 10x3/uL (130-400); Red Blood Cell (RBC) Count 4.28 mill/uL (4.70-6.10); White Blood Cell (WBC) Count 9.1 10x3/uL (4.8-10.8)
[2023-07-08 07:22] LABS: Anion Gap 13 mmol/L (10-20); BUN (Urea Nitrogen) 20 mg/dL (8.4-25.7); Calc. Creatinine Clearance 42 mL/min (70-130); Calcium 9.1 mg/dL (7.8-10.44); Carbon Dioxide 26 mmol/L (23-31); Chloride 103 mmol/L (98-107); Estimated GFR 45; Magnesium 2.2 mg/dL (1.6-2.6); Potassium 3.9 mmol/L (3.5-5.1); Sodium 138 mmol/L (136-145)
[2023-07-08 07:35] LABS: Glucose 53 mg/dL (83-110)
[2023-07-08 07:56] LABS: Hemoglobin A1c 9.3 % (4.0-6.0)
[2023-07-08] MEDS: Aspirin 81 mg Enteric Coated Tablet PO SCH (08:08)
[2023-07-08] MEDS: Polyethylene Glycol 3350 17 GM Packet PO SCH (08:08)
[2023-07-08] MEDS: Clopidogrel Bisulfate 75 MG TAB PO SCH (08:08)
[2023-07-08] MEDS: Finasteride 5 MG TAB PO SCH (08:08)
[2023-07-08] MEDS: hydrALAZINE 25 MG TAB PO SCH ×2 (08:09→22:03)
[2023-07-08] MEDS: Senokot S 8.6-50 MG TAB PO SCH ×2 (08:09→22:03)
[2023-07-08] MEDS: Amiodarone 200 MG TAB PO SCH ×2 (08:09→22:03)
[2023-07-08] MEDS: Docusate 100 MG CAP PO SCH (08:09)
[2023-07-08] MEDS: Linezolid 600 MG TAB PO SCH ×2 (08:09→22:03)
[2023-07-08] MEDS: Apixaban 2.5 MG TAB PO SCH ×2 (08:09→22:03)
[2023-07-08] MEDS: Lisinopril 20 MG TAB PO SCH (08:09)
[2023-07-08] MEDS ORDERED: Milk Of Magnesia 30 ML UDCUP PO SCH (12:45)
[2023-07-08] MEDS: Latanoprost 0.005% Ophth Soln 2.5 ml Bottle EA EYE SCH (22:02)
[2023-07-08] MEDS: Tamsulosin HCl 0.4 MG CAP PO SCH (22:03)
[2023-07-08] MEDS: Atorvastatin Calcium 40 MG TAB PO SCH (22:04)
[2023-07-09 04:36] LABS: #Eosinphils 0.4 thou/uL (0.0-0.7); #Monocytes 0.9 thou/uL (0.11-0.59); #Neutrophils 6.4 thou/uL (1.40-6.50); %Basophils 0.5 % (0.0-1.0); %Eosinophils 4.5 % (0.0-10.0); %Lymphocytes 8.7 % (21.0-51.0); %Monocytes 10.8 % (0.0-10.0); %Neutrophils 74.6 % (42.0-75.0); Hematocrit 39.7 % (42.0-52.0); Hemoglobin 12.9 g/dL (14.0-18.0); Mean Corpuscular HGB CONC 32.5 g/dL (32.0-36.0); Mean Corpuscular Hemoglobin 29.9 pg (27.0-31.0); Mean Corpuscular Volume 91.9 fl (78.0-98.0); Mean Platelet Volume 11.8 fL (7.4-10.4); Platelet Count 129 10x3/uL (130-400); RBC Distribution Width 14.8 % (11.5-14.5); Red Blood Cell (RBC) Count 4.32 mill/uL (4.70-6.10); White Blood Cell (WBC) Count 8.5 10x3/uL (4.8-10.8)
[2023-07-09 05:06] LABS: Anion Gap 12 mmol/L (10-20); BUN (Urea Nitrogen) 20 mg/dL (8.4-25.7); Calc. Creatinine Clearance 41 mL/min (70-130); Carbon Dioxide 27 mmol/L (23-31); Chloride 101 mmol/L (98-107); Estimated GFR 44; Glucose 74 mg/dL (83-110); Magnesium 2.4 mg/dL (1.6-2.6); Potassium 4.1 mmol/L (3.5-5.1); Sodium 136 mmol/L (136-145)
[2023-07-09] MEDS ORDERED: Iopamidol 370 76% 100 ML VIAL ONE (09:50)
[2023-07-09] MEDS: Senokot S 8.6-50 MG TAB PO SCH ×2 (09:58→21:53)
[2023-07-09] MEDS: Apixaban 2.5 MG TAB PO SCH ×2 (09:59→21:54)
[2023-07-09] MEDS: hydrALAZINE 25 MG TAB PO SCH ×2 (09:59→21:53)
[2023-07-09] MEDS: Linezolid 600 MG TAB PO SCH ×2 (09:59→21:52)
[2023-07-09] MEDS: Aspirin 81 mg Enteric Coated Tablet PO SCH (10:00)
[2023-07-09] MEDS: Amiodarone 200 MG TAB PO SCH ×2 (10:00→21:54)
[2023-07-09] MEDS: Docusate 100 MG CAP PO SCH (10:00)
[2023-07-09] MEDS: Finasteride 5 MG TAB PO SCH (10:00)
[2023-07-09] MEDS: Clopidogrel Bisulfate 75 MG TAB PO SCH (10:00)
[2023-07-09] MEDS: Polyethylene Glycol 3350 17 GM Packet PO SCH (10:01)
[2023-07-09] MEDS: Lisinopril 20 MG TAB PO SCH (10:01)
[2023-07-09] MEDS ORDERED: Fleet Saline Enema 133 ML BOT FS SCH (11:00)
[2023-07-09] MEDS: HumaLOG 300 UNITS/3 ML VIAL SC PRN (17:45)
[2023-07-09] MEDS: Tamsulosin HCl 0.4 MG CAP PO SCH (21:52)
[2023-07-09] MEDS: Latanoprost 0.005% Ophth Soln 2.5 ml Bottle EA EYE SCH (21:52)
[2023-07-09] MEDS: Atorvastatin Calcium 40 MG TAB PO SCH (21:53)
[2023-07-10 04:59] LABS: #Eosinphils 0.3 thou/uL (0.0-0.7); #Monocytes 0.8 thou/uL (0.11-0.59); #Neutrophils 6.7 thou/uL (1.40-6.50); %Basophils 0.5 % (0.0-1.0); %Eosinophils 3.5 % (0.0-10.0); %Lymphocytes 8.8 % (21.0-51.0); %Monocytes 9.4 % (0.0-10.0); %Neutrophils 77.1 % (42.0-75.0); Hematocrit 39.8 % (42.0-52.0); Mean Corpuscular HGB CONC 32.7 g/dL (32.0-36.0); Mean Corpuscular Hemoglobin 29.7 pg (27.0-31.0); Mean Corpuscular Volume 91.1 fl (78.0-98.0); Mean Platelet Volume 11.9 fL (7.4-10.4); RBC Distribution Width 14.7 % (11.5-14.5); Red Blood Cell (RBC) Count 4.37 mill/uL (4.70-6.10); White Blood Cell (WBC) Count 8.6 10x3/uL (4.8-10.8)
[2023-07-10 05:40] LABS: Anion Gap 13 mmol/L (10-20); BUN (Urea Nitrogen) 22 mg/dL (8.4-25.7); Calc. Creatinine Clearance 40 mL/min (70-130); Calcium 8.9 mg/dL (7.8-10.44); Carbon Dioxide 27 mmol/L (23-31); Chloride 103 mmol/L (98-107); Cholesterol 84 mg/dl (< 200 Desired); Estimated GFR 43; Glucose 116 mg/dL (83-110); HDL Cholesterol 28 mg/dL (>60 Neg Risk); LDL Cholesterol, Calculated 42 mg/dL; Magnesium 2.3 mg/dL (1.6-2.6); Potassium 3.9 mmol/L (3.5-5.1); Sodium 139 mmol/L (136-145); Triglycerides 71 mg/dL (Less than 150)
[2023-07-10 06:12] LABS: Platelet Count 133 10x3/uL (130-400)
[2023-07-10] MEDS: Aspirin 81 mg Enteric Coated Tablet PO SCH (08:40)
[2023-07-10] MEDS: Docusate 100 MG CAP PO SCH (08:41)
[2023-07-10] MEDS: Senokot S 8.6-50 MG TAB PO SCH ×2 (08:41→21:39)
[2023-07-10] MEDS: Linezolid 600 MG TAB PO SCH ×2 (08:41→21:39)
[2023-07-10] MEDS: hydrALAZINE 25 MG TAB PO SCH ×2 (08:41→21:38)
[2023-07-10] MEDS: Clopidogrel Bisulfate 75 MG TAB PO SCH (08:42)
[2023-07-10] MEDS: Finasteride 5 MG TAB PO SCH (08:42)
[2023-07-10] MEDS: Amiodarone 200 MG TAB PO SCH ×2 (08:42→21:37)
[2023-07-10] MEDS: Apixaban 2.5 MG TAB PO SCH ×2 (08:42→21:38)
[2023-07-10] MEDS: Lisinopril 20 MG TAB PO SCH (08:43)
[2023-07-10] MEDS: Polyethylene Glycol 3350 17 GM Packet PO SCH (08:43)
[2023-07-10] MEDS ORDERED: Fleet Saline Enema 133 ML BOT FS SCH (10:02)
[2023-07-10] MEDS: HumaLOG 300 UNITS/3 ML VIAL SC PRN (17:58)
[2023-07-10 20:37] LABS: Mycoplasma pneumoniae IgG AB 126 U/mL (0-99); Mycoplasma pneumoniae IgM AB Less than 770 U/mL (0-769)
[2023-07-10] MEDS: Tamsulosin HCl 0.4 MG CAP PO SCH (21:38)
[2023-07-10] MEDS: Atorvastatin Calcium 40 MG TAB PO SCH (21:39)
[2023-07-10] MEDS: Latanoprost 0.005% Ophth Soln 2.5 ml Bottle EA EYE SCH (21:40)
[2023-07-11 06:03] LABS: Magnesium 2.4 mg/dL (1.6-2.6)
[2023-07-11] MEDS ORDERED: GoLYTELY 4,000 ml Bottle PO SCH (09:30)
[2023-07-11] MEDS: Aspirin 81 mg Enteric Coated Tablet PO SCH (10:01)
[2023-07-11] MEDS: Clopidogrel Bisulfate 75 MG TAB PO SCH (10:02)
[2023-07-11] MEDS: Amiodarone 200 MG TAB PO SCH ×2 (10:02→21:18)
[2023-07-11] MEDS: hydrALAZINE 25 MG TAB PO SCH ×2 (10:02→21:18)
[2023-07-11] MEDS: Docusate 100 MG CAP PO SCH (10:02)
[2023-07-11] MEDS: Senokot S 8.6-50 MG TAB PO SCH ×2 (10:03→21:18)
[2023-07-11] MEDS: Finasteride 5 MG TAB PO SCH (10:03)
[2023-07-11] MEDS: Apixaban 2.5 MG TAB PO SCH ×2 (10:03→21:17)
[2023-07-11] MEDS: Linezolid 600 MG TAB PO SCH ×2 (10:03→21:19)
[2023-07-11] MEDS: Polyethylene Glycol 3350 17 GM Packet PO SCH (10:04)
[2023-07-11] MEDS: Lisinopril 20 MG TAB PO SCH (10:04)
[2023-07-11 10:24] LABS: #Basophils 0.1 thou/uL (0.0-0.2); #Eosinphils 0.3 thou/uL (0.0-0.7); #Monocytes 0.6 thou/uL (0.11-0.59); #Neutrophils 6.8 thou/uL (1.40-6.50); %Basophils 0.6 % (0.0-1.0); %Eosinophils 3.6 % (0.0-10.0); %Lymphocytes 8.1 % (21.0-51.0); %Monocytes 7.5 % (0.0-10.0); %Neutrophils 79.4 % (42.0-75.0); Hematocrit 41.1 % (42.0-52.0); Hemoglobin 13.4 g/dL (14.0-18.0); Mean Corpuscular HGB CONC 32.6 g/dL (32.0-36.0); Mean Corpuscular Hemoglobin 29.9 pg (27.0-31.0); Mean Corpuscular Volume 91.7 fl (78.0-98.0); Mean Platelet Volume 11.8 fL (7.4-10.4); Platelet Count 142 10x3/uL (130-400); RBC Distribution Width 14.9 % (11.5-14.5); Red Blood Cell (RBC) Count 4.48 mill/uL (4.70-6.10); White Blood Cell (WBC) Count 8.6 10x3/uL (4.8-10.8)
[2023-07-11 10:42] LABS: Anion Gap 12 mmol/L (10-20); BUN (Urea Nitrogen) 27 mg/dL (8.4-25.7); Calc. Creatinine Clearance 34 mL/min (70-130); Carbon Dioxide 28 mmol/L (23-31); Chloride 99 mmol/L (98-107); Estimated GFR 35; Glucose 227 mg/dL (83-110); Potassium 4.1 mmol/L (3.5-5.1); Sodium 135 mmol/L (136-145)
[2023-07-11] MEDS: HumaLOG 300 UNITS/3 ML VIAL SC PRN (14:02)
[2023-07-11] MEDS: Lactated Ringer's 1,000 ML IV SCH (15:38)
[2023-07-11] MEDS: Latanoprost 0.005% Ophth Soln 2.5 ml Bottle EA EYE SCH (21:17)
[2023-07-11] MEDS: Atorvastatin Calcium 40 MG TAB PO SCH (21:18)
[2023-07-11] MEDS: Tamsulosin HCl 0.4 MG CAP PO SCH (21:18)
[2023-07-12] MEDS: Lactated Ringer's 1,000 ML IV SCH (01:48)
[2023-07-12 04:21] LABS: #Eosinphils 0.4 thou/uL (0.0-0.7); #Monocytes 0.7 thou/uL (0.11-0.59); #Neutrophils 6.5 thou/uL (1.40-6.50); %Basophils 0.2 % (0.0-1.0); %Eosinophils 4.8 % (0.0-10.0); %Lymphocytes 8.4 % (21.0-51.0); %Monocytes 8.5 % (0.0-10.0); %Neutrophils 77.4 % (42.0-75.0); Hematocrit 37.8 % (42.0-52.0); Hemoglobin 12.3 g/dL (14.0-18.0); Mean Corpuscular HGB CONC 32.5 g/dL (32.0-36.0); Mean Corpuscular Hemoglobin 29.6 pg (27.0-31.0); Mean Corpuscular Volume 91.1 fl (78.0-98.0); Mean Platelet Volume 11.9 fL (7.4-10.4); Platelet Count 136 10x3/uL (130-400); RBC Distribution Width 14.9 % (11.5-14.5); Red Blood Cell (RBC) Count 4.15 mill/uL (4.70-6.10); White Blood Cell (WBC) Count 8.4 10x3/uL (4.8-10.8)
[2023-07-12 04:44] LABS: Anion Gap 13 mmol/L (10-20); BUN (Urea Nitrogen) 23 mg/dL (8.4-25.7); Calc. Creatinine Clearance 42 mL/min (70-130); Calcium 8.8 mg/dL (7.8-10.44); Carbon Dioxide 27 mmol/L (23-31); Chloride 102 mmol/L (98-107); Estimated GFR 45; Glucose 116 mg/dL (83-110); Magnesium 2.1 mg/dL (1.6-2.6); Potassium 3.8 mmol/L (3.5-5.1); Sodium 138 mmol/L (136-145)
[2023-07-12] MEDS: Lisinopril 20 MG TAB PO SCH (10:08)
[2023-07-12] MEDS: Linezolid 600 MG TAB PO SCH ×2 (10:08→20:23)
[2023-07-12] MEDS: Aspirin 81 mg Enteric Coated Tablet PO SCH (10:08)
[2023-07-12] MEDS: Apixaban 2.5 MG TAB PO SCH ×2 (10:08→20:23)
[2023-07-12] MEDS: hydrALAZINE 25 MG TAB PO SCH ×2 (10:09→20:24)
[2023-07-12] MEDS: Amiodarone 200 MG TAB PO SCH ×2 (10:09→20:23)
[2023-07-12] MEDS: Clopidogrel Bisulfate 75 MG TAB PO SCH (10:10)
[2023-07-12] MEDS: Polyethylene Glycol 3350 17 GM Packet PO SCH (10:10)
[2023-07-12] MEDS: Docusate 100 MG CAP PO SCH (10:10)
[2023-07-12] MEDS: Finasteride 5 MG TAB PO SCH (10:10)
[2023-07-12] MEDS: Senokot S 8.6-50 MG TAB PO SCH ×2 (10:24→20:24)
[2023-07-12] MEDS: HumaLOG 300 UNITS/3 ML VIAL SC PRN (18:33)
[2023-07-12] MEDS: Atorvastatin Calcium 40 MG TAB PO SCH (20:23)
[2023-07-12] MEDS: Tamsulosin HCl 0.4 MG CAP PO SCH (20:23)
[2023-07-12] MEDS: Latanoprost 0.005% Ophth Soln 2.5 ml Bottle EA EYE SCH (20:24)
[2023-07-13 05:42] LABS: #Eosinphils 0.1 thou/uL (0.0-0.7); #Monocytes 0.5 thou/uL (0.11-0.59); #Neutrophils 5.6 thou/uL (1.40-6.50); %Basophils 0.3 % (0.0-1.0); %Eosinophils 1.7 % (0.0-10.0); %Lymphocytes 12.7 % (21.0-51.0); %Monocytes 7.2 % (0.0-10.0); %Neutrophils 77.5 % (42.0-75.0); Hematocrit 39.4 % (42.0-52.0); Hemoglobin 12.6 g/dL (14.0-18.0); Mean Corpuscular Hemoglobin 29.2 pg (27.0-31.0); Mean Corpuscular Volume 91.2 fl (78.0-98.0); Mean Platelet Volume 11.3 fL (7.4-10.4); Platelet Count 147 10x3/uL (130-400); RBC Distribution Width 14.9 % (11.5-14.5); Red Blood Cell (RBC) Count 4.32 mill/uL (4.70-6.10); White Blood Cell (WBC) Count 7.3 10x3/uL (4.8-10.8)
[2023-07-13 06:06] LABS: Anion Gap 14 mmol/L (10-20); BUN (Urea Nitrogen) 23 mg/dL (8.4-25.7); Calc. Creatinine Clearance 41 mL/min (70-130); Calcium 8.8 mg/dL (7.8-10.44); Carbon Dioxide 24 mmol/L (23-31); Chloride 102 mmol/L (98-107); Estimated GFR 44; Glucose 126 mg/dL (83-110); Magnesium 2.2 mg/dL (1.6-2.6); Potassium 3.8 mmol/L (3.5-5.1); Sodium 136 mmol/L (136-145)
[2023-07-13] MEDS: Senokot S 8.6-50 MG TAB PO SCH ×2 (08:59→20:52)
[2023-07-13] MEDS: Docusate 100 MG CAP PO SCH (08:59)
[2023-07-13] MEDS: Clopidogrel Bisulfate 75 MG TAB PO SCH (09:01)
[2023-07-13] MEDS: Aspirin 81 mg Enteric Coated Tablet PO SCH (09:01)
[2023-07-13] MEDS: Apixaban 2.5 MG TAB PO SCH ×2 (09:04→20:52)
[2023-07-13] MEDS: Lisinopril 20 MG TAB PO SCH (09:06)
[2023-07-13] MEDS: Amiodarone 200 MG TAB PO SCH ×2 (09:07→20:52)
[2023-07-13] MEDS: Finasteride 5 MG TAB PO SCH (09:08)
[2023-07-13] MEDS: Linezolid 600 MG TAB PO SCH (09:08)
[2023-07-13] MEDS: hydrALAZINE 25 MG TAB PO SCH ×2 (09:13→20:52)
[2023-07-13] MEDS: Polyethylene Glycol 3350 17 GM Packet PO SCH (09:15)
[2023-07-13] MEDS: Atorvastatin Calcium 40 MG TAB PO SCH (20:52)
[2023-07-13] MEDS: Latanoprost 0.005% Ophth Soln 2.5 ml Bottle EA EYE SCH (20:52)
[2023-07-13] MEDS: Tamsulosin HCl 0.4 MG CAP PO SCH (20:52)
[2023-07-13] MEDS: HumaLOG 300 UNITS/3 ML VIAL SC PRN (20:53)
[2023-07-14 04:43] LABS: #Eosinphils 0.2 thou/uL (0.0-0.7); #Monocytes 0.6 thou/uL (0.11-0.59); #Neutrophils 6.4 thou/uL (1.40-6.50); %Basophils 0.4 % (0.0-1.0); %Eosinophils 2.8 % (0.0-10.0); %Lymphocytes 12.2 % (21.0-51.0); %Monocytes 7.5 % (0.0-10.0); %Neutrophils 76.7 % (42.0-75.0); Hematocrit 38.6 % (42.0-52.0); Hemoglobin 12.5 g/dL (14.0-18.0); Mean Corpuscular HGB CONC 32.4 g/dL (32.0-36.0); Mean Corpuscular Hemoglobin 29.6 pg (27.0-31.0); Mean Corpuscular Volume 91.3 fl (78.0-98.0); Mean Platelet Volume 11.6 fL (7.4-10.4); Platelet Count 137 10x3/uL (130-400); RBC Distribution Width 14.8 % (11.5-14.5); Red Blood Cell (RBC) Count 4.23 mill/uL (4.70-6.10); White Blood Cell (WBC) Count 8.3 10x3/uL (4.8-10.8)
[2023-07-14 05:06] LABS: Anion Gap 12 mmol/L (10-20); BUN (Urea Nitrogen) 26 mg/dL (8.4-25.7); Calc. Creatinine Clearance 41 mL/min (70-130); Calcium 8.9 mg/dL (7.8-10.44); Carbon Dioxide 25 mmol/L (23-31); Chloride 102 mmol/L (98-107); Estimated GFR 43; Glucose 161 mg/dL (83-110); Potassium 3.9 mmol/L (3.5-5.1); Sodium 135 mmol/L (136-145)
[2023-07-14] MEDS: Apixaban 2.5 MG TAB PO SCH ×2 (09:27→23:13)
[2023-07-14] MEDS: Clopidogrel Bisulfate 75 MG TAB PO SCH (09:27)
[2023-07-14] MEDS: Senokot S 8.6-50 MG TAB PO SCH ×2 (09:27→23:13)
[2023-07-14] MEDS: Polyethylene Glycol 3350 17 GM Packet PO SCH (09:27)
[2023-07-14] MEDS: Lisinopril 20 MG TAB PO SCH (09:27)
[2023-07-14] MEDS: Docusate 100 MG CAP PO SCH (09:27)
[2023-07-14] MEDS: hydrALAZINE 25 MG TAB PO SCH ×2 (09:28→23:12)
[2023-07-14] MEDS: Aspirin 81 mg Enteric Coated Tablet PO SCH (09:28)
[2023-07-14] MEDS: Amiodarone 200 MG TAB PO SCH ×2 (09:28→23:11)
[2023-07-14] MEDS: Finasteride 5 MG TAB PO SCH (09:28)
[2023-07-14] MEDS: Atorvastatin Calcium 40 MG TAB PO SCH (23:12)
[2023-07-14] MEDS: Tamsulosin HCl 0.4 MG CAP PO SCH (23:13)
[2023-07-14] MEDS: Latanoprost 0.005% Ophth Soln 2.5 ml Bottle EA EYE SCH (23:13)
[2023-07-15 06:38] LABS: #Eosinphils 0.3 thou/uL (0.0-0.7); #Monocytes 0.7 thou/uL (0.11-0.59); #Neutrophils 6.1 thou/uL (1.40-6.50); %Basophils 0.4 % (0.0-1.0); %Eosinophils 3.6 % (0.0-10.0); %Lymphocytes 12.8 % (21.0-51.0); %Monocytes 8.4 % (0.0-10.0); %Neutrophils 74.4 % (42.0-75.0); Hemoglobin 12.6 g/dL (14.0-18.0); Mean Corpuscular HGB CONC 32.3 g/dL (32.0-36.0); Mean Corpuscular Hemoglobin 29.4 pg (27.0-31.0); Mean Corpuscular Volume 90.9 fl (78.0-98.0); Mean Platelet Volume 11.6 fL (7.4-10.4); Platelet Count 121 10x3/uL (130-400); RBC Distribution Width 14.8 % (11.5-14.5); Red Blood Cell (RBC) Count 4.29 mill/uL (4.70-6.10); White Blood Cell (WBC) Count 8.1 10x3/uL (4.8-10.8)
[2023-07-15 07:05] LABS: Anion Gap 13 mmol/L (10-20); BUN (Urea Nitrogen) 23 mg/dL (8.4-25.7); Calc. Creatinine Clearance 45 mL/min (70-130); Calcium 8.8 mg/dL (7.8-10.44); Carbon Dioxide 26 mmol/L (23-31); Chloride 101 mmol/L (98-107); Estimated GFR 48; Glucose 172 mg/dL (83-110); Potassium 3.8 mmol/L (3.5-5.1); Sodium 136 mmol/L (136-145)
[2023-07-15] MEDS: Clopidogrel Bisulfate 75 MG TAB PO SCH (11:04)
[2023-07-15] MEDS: Polyethylene Glycol 3350 17 GM Packet PO SCH (11:04)
[2023-07-15] MEDS: Aspirin 81 mg Enteric Coated Tablet PO SCH ×2 (11:04→11:06)
[2023-07-15] MEDS: Docusate 100 MG CAP PO SCH (11:04)
[2023-07-15] MEDS: Amiodarone 200 MG TAB PO SCH ×2 (11:04→21:08)
[2023-07-15] MEDS: Lisinopril 20 MG TAB PO SCH (11:04)
[2023-07-15] MEDS: Senokot S 8.6-50 MG TAB PO SCH ×2 (11:05→21:08)
[2023-07-15] MEDS: hydrALAZINE 25 MG TAB PO SCH ×2 (11:05→21:09)
[2023-07-15] MEDS: Apixaban 2.5 MG TAB PO SCH ×2 (11:06→21:09)
[2023-07-15] MEDS: Finasteride 5 MG TAB PO SCH (11:06)
[2023-07-15] MEDS: HumaLOG 300 UNITS/3 ML VIAL SC PRN ×2 (14:59→22:45)
[2023-07-15] MEDS: Atorvastatin Calcium 40 MG TAB PO SCH (21:08)
[2023-07-15] MEDS: Tamsulosin HCl 0.4 MG CAP PO SCH (21:08)
[2023-07-15] MEDS: Latanoprost 0.005% Ophth Soln 2.5 ml Bottle EA EYE SCH (21:09)
[2023-07-16 06:01] LABS: #Eosinphils 0.3 thou/uL (0.0-0.7); #Monocytes 0.8 thou/uL (0.11-0.59); #Neutrophils 5.9 thou/uL (1.40-6.50); %Basophils 0.5 % (0.0-1.0); %Eosinophils 3.7 % (0.0-10.0); %Monocytes 9.9 % (0.0-10.0); %Neutrophils 74.5 % (42.0-75.0); Hematocrit 38.2 % (42.0-52.0); Hemoglobin 12.5 g/dL (14.0-18.0); Mean Corpuscular HGB CONC 32.7 g/dL (32.0-36.0); Mean Corpuscular Hemoglobin 29.8 pg (27.0-31.0); Mean Platelet Volume 11.9 fL (7.4-10.4); Platelet Count 116 10x3/uL (130-400); RBC Distribution Width 14.9 % (11.5-14.5); White Blood Cell (WBC) Count 7.9 10x3/uL (4.8-10.8)
[2023-07-16 06:25] LABS: Anion Gap 13 mmol/L (10-20); BUN (Urea Nitrogen) 22 mg/dL (8.4-25.7); Calc. Creatinine Clearance 45 mL/min (70-130); Calcium 8.8 mg/dL (7.8-10.44); Carbon Dioxide 26 mmol/L (23-31); Chloride 102 mmol/L (98-107); Estimated GFR 49; Glucose 170 mg/dL (83-110); Potassium 3.6 mmol/L (3.5-5.1); Sodium 137 mmol/L (136-145)
[2023-07-16] MEDS: HumaLOG 300 UNITS/3 ML VIAL SC PRN (06:54)
[2023-07-16] MEDS: Apixaban 2.5 MG TAB PO SCH (09:19)
[2023-07-16] MEDS: Amiodarone 200 MG TAB PO SCH (09:19)
[2023-07-16] MEDS: Lisinopril 20 MG TAB PO SCH (09:19)
[2023-07-16] MEDS: Finasteride 5 MG TAB PO SCH (09:19)
[2023-07-16] MEDS: Docusate 100 MG CAP PO SCH (09:19)
[2023-07-16] MEDS: Polyethylene Glycol 3350 17 GM Packet PO SCH (09:20)
[2023-07-16] MEDS: hydrALAZINE 25 MG TAB PO SCH (09:20)
[2023-07-16] MEDS: Clopidogrel Bisulfate 75 MG TAB PO SCH (09:20)
[2023-07-16] MEDS: Senokot S 8.6-50 MG TAB PO SCH (09:20)
[2023-07-16] MEDS: Aspirin 81 mg Enteric Coated Tablet PO SCH (09:24)
[2023-07-16 12:25] VITALS: BP 155/73; TEMP 98
== END 2023-07-16 14:00 | disposition swing bed (61) | DRG 872 ==
LOC: ERS 11:09 → 2NO 14:45 → OBSVTOIN 07-03 15:51 → T4-B 07-03 19:09 → 2SE 07-08 17:42
PROVIDERS: ADMIT Internal Medicine; ATTEND Internal Medicine
DX: A41.81 Sepsis due to Enterococcus (principal); I24.89 Other forms of acute ischemic heart disease; I69.351 Hemiplegia and hemiparesis following cerebral infarction affecting right dominant side; J94.2 Hemothorax; N30.01 Acute cystitis with hematuria; I25.10 Atherosclerotic heart disease of native coronary artery without angina pectoris; I48.91 Unspecified atrial fibrillation; E11.22 Type 2 diabetes mellitus with diabetic chronic kidney disease; N18.30 Chronic kidney disease, stage 3 unspecified; E78.5 Hyperlipidemia, unspecified; I12.9 Hypertensive chronic kidney disease with stage 1 through stage 4 chronic kidney disease, or unspecified chronic kidney disease; R33.9 Retention of urine, unspecified; F10.90 Alcohol use, unspecified, uncomplicated; I65.22 Occlusion and stenosis of left carotid artery; R53.81 Other malaise; K80.20 Calculus of gallbladder without cholecystitis without obstruction; K59.00 Constipation, unspecified; K44.9 Diaphragmatic hernia without obstruction or gangrene; G47.33 Obstructive sleep apnea (adult) (pediatric); N20.0 Calculus of kidney; D69.6 Thrombocytopenia, unspecified; E11.649 Type 2 diabetes mellitus with hypoglycemia without coma; H40.9 Unspecified glaucoma; M62.81 Muscle weakness (generalized); N40.1 Benign prostatic hyperplasia with lower urinary tract symptoms; Z88.0 Allergy status to penicillin; Z79.899 Other long term (current) drug therapy; Z79.84 Long term (current) use of oral hypoglycemic drugs; Z79.82 Long term (current) use of aspirin; Z95.0 Presence of cardiac pacemaker; Z11.52 Encounter for screening for COVID-19
CPT/HCPCS: 36415; 36416; 51702; 70450; 70496; 70498; 71045; 74018; 74176; 80048; 80053; 80061; 81001; 82550; 83036; 83690; 83735; 83880; 84443; 84484; 85025; 85610; 85730; 87077; 87081; 87086; 87186; 87449; 87899; 93005; 93306; 93880; 96365; 96367; 96375; 96376; G0378; J0696; J1200; J1815; J1940; J1956; J3490; J7120; Q9967